=== PATIENT | female | born 1965 | race Caucasian/White ===

== ENCOUNTER 2017-05-15 01:55 | Inpatient (IN) | payer SELFPAY ==
[~2017-05-15] VITALS: Ht 168.9 cm; Wt 60.0 kg
[2017-05-15] MEDS ORDERED: OMEP10 PO (02:13)
[2017-05-15] MEDS ORDERED: GABA-531 PO (02:13)
[2017-05-15] MEDS ORDERED: PRAZ2 PO (02:13)
[2017-05-15] MEDS ORDERED: TRAZ-144 PO (02:13)
[2017-05-15] MEDS ORDERED: MIRT30 PO (02:13)
[2017-05-15] MEDS ORDERED: CLON.5 PO (02:13)
[2017-05-15] MEDS ORDERED: ARIP2 PO (02:13)
[2017-05-15] MEDS ORDERED: OLAN2.5T3 PO (02:13)
[2017-05-15 04:37] LABS: AMPHET/METH SCREEN,URINE POSITIVE (NEGATIVE); BARBITURATE SCREEN, URINE NEGATIVE (NEGATIVE); BENZODIAZEPINES SCREEN,URINE POSITIVE (NEGATIVE); CANNABINOID SCREEN,URINE POSITIVE (NEGATIVE); COCAINE SCREEN,URINE POSITIVE (NEGATIVE); METHADONE SCREEN, URINE NEGATIVE (NEGATIVE); OPIATE SCREEN,URINE NEGATIVE (NEGATIVE)
[2017-05-15 04:40] LABS: PHENCYCLIDINE SCREEN,URINE NEGATIVE (NEGATIVE)
[2017-05-15 04:58] LABS: BASOPHILS # (AUTO) 0.01 K/uL (0.00-0.20); BASOPHILS % (AUTO) 0.3 % (0.0-2.0); EOSINOPHILS # (AUTO) 0.07 K/uL (0.00-0.70); EOSINOPHILS % (AUTO) 1.54 % (1.0-6.0); HEMATOCRIT 37.2 % (36-46); HEMOGLOBIN 12.5 g/dL (12.0-16.0); LYMPHOCYTES # (AUTO) 2.5 K/uL (1.0-4.8); LYMPHOCYTES % (AUTO) 59.5 % (22.0-44.0); MEAN CORPUSCULAR HEMOGLOBIN 31.7 pg (26.0-34.0); MEAN CORPUSCULAR HGB CONC 33.7 G/dL (31.0-37.0); MEAN CORPUSCULAR VOLUME 94 fL (80-100); MONOCYTES # (AUTO) 0.2 K/uL (0.1-1.0); MONOCYTES % (AUTO) 4.9 % (2.0-9.0); NEUTROPHILS # (AUTO) 1.4 K/uL (1.8-7.7); NEUTROPHILS % (AUTO) 33.8 % (40.0-70.0); PLATELET COUNT (AUTO) 206 K/uL (150-450); RED BLOOD CELL COUNT(AUTO) 3.96 MIL/uL (4.00-5.20)
[2017-05-15 05:03] LABS: ANION GAP 8 mmol/L (8-16); CALCIUM, TOTAL 8.3 mg/dL (8.8-10.5); CARBON DIOXIDE 30 mmol/L (22-29); CHLORIDE 108 mmol/L (98-107); CREATININE 0.52 mg/dL (0.60-1.30); GLOMERULAR FILTR. RATE CALC > 60 mL/min (>60); GLUCOSE,RANDOM 80 mg/dL (70-110); POTASSIUM 3.4 mmol/L (3.5-5.1); SODIUM SERUM 146 mmol/L (136-145); UREA NITROGEN, BLOOD 17 mg/dL (7-18)
[2017-05-15 05:10] LABS: ALANINE AMINOTRANSFERASE 65 U/L (12-78); ALBUMIN 3.4 g/dL (3.4-5.0); ALKALINE PHOSPHATASE 122 U/L (46-116); ASPARTATE AMINOTRANSFERASE 33 U/L (15-37); BILIRUBIN,TOTAL 0.2 mg/dL (0.1-1.0); TOTAL PROTEIN, SERUM 7.5 g/dL (6.4-8.2)
[2017-05-15 09:59] VITALS: BP 115/72
[2017-05-15] MEDS ORDERED: PNEUMOCOCCAL VACCINE POLYVALENT 0.5 ML VIAL [PPSV23] IM ONE (10:30)
[2017-05-15] MEDS ORDERED: INFLUENZA VIRUS VACCINE QVS 2017-18 (3YR+)/PF 60 MCG/0.5 ML SYRINGE IM ONE (10:30)
[2017-05-15] MEDS: OLANZapine 5 MG TABLET PO SCH (11:32)
[2017-05-15 17:30] VITALS: BP 115/67
[2017-05-15] MEDS ORDERED: POTASSIUM CHLORIDE 20 MEQ ER TABLET PO ONE (17:45)
[2017-05-15 18:30] VITALS: BP 111/65
[2017-05-15 19:30] VITALS: BP 117/69
[2017-05-15 20:20] VITALS: BP 110/64
[2017-05-15 20:34] VITALS: BP 111/62
[2017-05-15] MEDS: TraZODone HCL 50 MG TABLET PO SCH (20:52)
[2017-05-15] MEDS: MIRTAZAPINE 30 MG TABLET PO SCH (20:52)
[2017-05-15] MEDS ORDERED: IBUPROFEN 400 MG TABLET PO PRN (21:00)
[2017-05-15] MEDS ORDERED: ACETAMINOPHEN 325 MG TABLET PO PRN (21:00)
[2017-05-16] VITALS (7 sets, daily range): BP systolic 102–120; BP diastolic 66–81
[2017-05-16 07:58] LABS: CHOL/HDL RATIO 1.6 (3.9-5.7); POTASSIUM 4.2 mmol/L (3.5-5.1); THYROID STIMULATING HORMONE 0.34 uIU/mL (0.36-3.74)
[2017-05-16 07:59] LABS: HEMOGLOBIN A1C 5.4 % (4.5-6.2)
[2017-05-16] MEDS: OLANZapine 5 MG TABLET PO SCH (08:28)
[2017-05-16] MEDS: NICOTINE 14 MG/24 HOUR PATCH TD SCH (09:00)
[2017-05-16] MEDS ORDERED: NICOTINE 7 MG/24 HOUR PATCH TD SCH (09:00)
[2017-05-16] MEDS: MIRTAZAPINE 30 MG TABLET PO SCH (20:25)
[2017-05-16] MEDS: TraZODone HCL 50 MG TABLET PO SCH (20:25)
[2017-05-17 07:09] VITALS: BP 115/70
[2017-05-17 08:27] VITALS: BP 104/67
[2017-05-17] MEDS: NICOTINE 14 MG/24 HOUR PATCH TD SCH (09:00)
[2017-05-17] MEDS: OLANZapine 5 MG TABLET PO SCH (09:00)
[2017-05-17 16:00] VITALS: BP 101/69
[2017-05-17] MEDS: TraZODone HCL 50 MG TABLET PO SCH (19:23)
[2017-05-17] MEDS: MIRTAZAPINE 30 MG TABLET PO SCH (19:32)
[2017-05-17] MEDS: ZOLPIDEM TARTRATE 10 MG TABLET PO PRN (21:08)
[2017-05-18 04:15] VITALS: BP 106/61
[2017-05-18] MEDS: HALOPERIDOL 5 MG TABLET PO PRN (04:16)
[2017-05-18] MEDS ORDERED: LOPERAMIDE HCL 2 MG CAPSULE PO PRN (07:00)
[2017-05-18] MEDS: OLANZapine 5 MG TABLET PO SCH (08:12)
[2017-05-18 08:30] VITALS: BP 98/59
[2017-05-18] MEDS: NICOTINE 14 MG/24 HOUR PATCH TD SCH (09:00)
[2017-05-18 09:21] LABS: ANION GAP 6 mmol/L (8-16); CALCIUM, TOTAL 8.7 mg/dL (8.8-10.5); CARBON DIOXIDE 30 mmol/L (22-29); CHLORIDE 101 mmol/L (98-107); CREATININE 0.56 mg/dL (0.60-1.30); GLOMERULAR FILTR. RATE CALC > 60 mL/min (>60); GLUCOSE,RANDOM 116 mg/dL (70-110); SODIUM SERUM 137 mmol/L (136-145); UREA NITROGEN, BLOOD 15 mg/dL (7-18)
[2017-05-18 16:00] VITALS: BP 106/65
[2017-05-18] MEDS: ZOLPIDEM TARTRATE 10 MG TABLET PO PRN (20:11)
[2017-05-18] MEDS: MIRTAZAPINE 30 MG TABLET PO SCH (20:11)
[2017-05-18] MEDS: TraZODone HCL 50 MG TABLET PO SCH (20:11)
[2017-05-19 01:34] VITALS: BP 105/65
[2017-05-19] MEDS: OLANZapine 5 MG TABLET PO SCH (08:15)
[2017-05-19 08:48] VITALS: BP 99/60
[2017-05-19] MEDS: NICOTINE 14 MG/24 HOUR PATCH TD SCH (09:00)
[2017-05-19 16:41] VITALS: BP 118/73
[2017-05-19] MEDS: TraZODone HCL 50 MG TABLET PO SCH (20:05)
[2017-05-19] MEDS: MIRTAZAPINE 30 MG TABLET PO SCH (20:05)
[2017-05-19] MEDS: ZOLPIDEM TARTRATE 10 MG TABLET PO PRN (21:34)
[2017-05-20 05:42] VITALS: BP 100/70
[2017-05-20 08:00] VITALS: BP 110/60
[2017-05-20] MEDS: OLANZapine 5 MG TABLET PO SCH (08:06)
[2017-05-20] MEDS: NICOTINE 14 MG/24 HOUR PATCH TD SCH (09:00)
[2017-05-20 16:00] VITALS: BP 100/64
[2017-05-20] MEDS: TraZODone HCL 50 MG TABLET PO SCH (20:12)
[2017-05-20] MEDS: MIRTAZAPINE 30 MG TABLET PO SCH (20:12)
[2017-05-20] MEDS: ZOLPIDEM TARTRATE 10 MG TABLET PO PRN (21:16)
[2017-05-21 00:25] VITALS: BP 110/68
[2017-05-21] MEDS: HALOPERIDOL 5 MG TABLET PO PRN (04:16)
[2017-05-21 08:44] VITALS: BP 100/68
[2017-05-21] MEDS: NICOTINE 14 MG/24 HOUR PATCH TD SCH (09:00)
[2017-05-21] MEDS: OLANZapine 5 MG TABLET PO SCH (09:26)
[2017-05-21 16:23] VITALS: BP 104/71
[2017-05-21] MEDS: MIRTAZAPINE 30 MG TABLET PO SCH (20:19)
[2017-05-21] MEDS: TraZODone HCL 50 MG TABLET PO SCH (20:19)
[2017-05-21] MEDS: ZOLPIDEM TARTRATE 10 MG TABLET PO PRN (21:11)
[2017-05-22 00:36] VITALS: BP 102/65
[2017-05-22] MEDS: OLANZapine 5 MG TABLET PO SCH (08:27)
[2017-05-22] MEDS: NICOTINE 14 MG/24 HOUR PATCH TD SCH (08:27)
[2017-05-22] MEDS: GABAPENTIN 300 MG CAPSULE PO SCH ×2 (13:15→16:03)
[2017-05-22 13:25] VITALS: BP 98/62
[2017-05-22 16:11] VITALS: BP 105/67
[2017-05-22] MEDS: HALOPERIDOL 5 MG TABLET PO PRN (17:36)
[2017-05-22] MEDS: MIRTAZAPINE 30 MG TABLET PO SCH (20:16)
[2017-05-22] MEDS: PRAZOSIN HCL 1 MG CAPSULE PO SCH (20:17)
[2017-05-22] MEDS: TraZODone HCL 50 MG TABLET PO SCH (20:17)
[2017-05-22] MEDS: ZOLPIDEM TARTRATE 10 MG TABLET PO PRN (20:44)
[2017-05-23] MEDS: HALOPERIDOL 5 MG TABLET PO PRN (04:17)
[2017-05-23 04:30] VITALS: BP 100/68
[2017-05-23 08:00] VITALS: BP 100/62
[2017-05-23] MEDS: GABAPENTIN 300 MG CAPSULE PO SCH ×3 (08:28→16:14)
[2017-05-23] MEDS: NICOTINE 14 MG/24 HOUR PATCH TD SCH (08:29)
[2017-05-23] MEDS ORDERED: OLANZapine 10 MG TABLET PO SCH (09:00)
[2017-05-23 16:51] VITALS: BP 102/67
[2017-05-23] MEDS: MIRTAZAPINE 30 MG TABLET PO SCH (20:05)
[2017-05-23] MEDS: TraZODone HCL 50 MG TABLET PO SCH (20:05)
[2017-05-23 20:36] VITALS: BP 108/68
[2017-05-23] MEDS: PRAZOSIN HCL 1 MG CAPSULE PO SCH (20:36)
[2017-05-24] MEDS ORDERED: GABA-531 PO (03:00)
[2017-05-24] MEDS ORDERED: PRAZ1 PO (03:00)
[2017-05-24] MEDS ORDERED: TRAZ-144 PO (03:00)
[2017-05-24] MEDS ORDERED: OLAN10TA3 PO (03:00)
[2017-05-24] MEDS ORDERED: MIRT30 PO (03:00)
== END 2017-05-24 07:15 | disposition home or self-care (01) | DRG 885 ==
LOC: EMS 01:57 → AHU 09:10 → B2S 16:45
PROVIDERS: ADMIT Psychiatry & Neurology Child & Adolescent Psychiatry; ATTEND Psychiatry & Neurology Child & Adolescent Psychiatry
DX: F29 Unspecified psychosis not due to a substance or known physiological condition (principal); E87.1 Hypo-osmolality and hyponatremia; R45.851 Suicidal ideations; E87.6 Hypokalemia; F17.210 Nicotine dependence, cigarettes, uncomplicated; D72.819 Decreased white blood cell count, unspecified; F15.90 Other stimulant use, unspecified, uncomplicated; F12.90 Cannabis use, unspecified, uncomplicated; F14.90 Cocaine use, unspecified, uncomplicated; Z59.0 Homelessness; Z88.2 Allergy status to sulfonamides; Z79.899 Other long term (current) drug therapy; Z88.8 Allergy status to other drugs, medicaments and biological substances; Z88.1 Allergy status to other antibiotic agents
CPT/HCPCS: 83036; 84132; 84443; 99285; G0480

== ENCOUNTER 2018-02-02 08:52 | Inpatient (IN) | payer MEDICARE, MEDICAID ==
[2018-02-02] VITALS (7 sets, daily range): BP systolic 102–124; BP diastolic 60–79
[~2018-02-02] VITALS: Ht 170.2 cm; Wt 61.7 kg
[~2018-02-02 08:52] MED LIST: GABA-531 PO; MIRT30 PO; OLAN10TA3 PO; PRAZ1 PO; TRAZ-219 PO
[2018-02-02 10:03] LABS: BASOPHILS % (AUTO) 0.4 % (0.0-2.0); EOSINOPHILS % (AUTO) 0.2 % (1.0-6.0); HEMATOCRIT 37.8 % (36-46); HEMOGLOBIN 12.9 g/dL (12.0-16.0); LYMPHOCYTES # (AUTO) 1.5 K/uL (1.0-4.8); LYMPHOCYTES % (AUTO) 25.5 % (22.0-44.0); MEAN CORPUSCULAR HEMOGLOBIN 32.6 pg (26.0-34.0); MEAN CORPUSCULAR HGB CONC 34.1 G/dL (31.0-37.0); MEAN CORPUSCULAR VOLUME 96 fL (80-100); MONOCYTES # (AUTO) 0.4 K/uL (0.1-1.0); MONOCYTES % (AUTO) 6.3 % (2.0-9.0); NEUTROPHILS # (AUTO) 4.1 K/uL (1.8-7.7); NEUTROPHILS % (AUTO) 67.6 % (40.0-70.0); PLATELET COUNT (AUTO) 223 K/uL (150-450); RED BLOOD CELL COUNT(AUTO) 3.96 MIL/uL (4.00-5.20); RED CELL DISTRIBUTION WIDTH 12.8 % (11.5-14.5)
[2018-02-02 10:09] LABS: ANION GAP 9 mmol/L (8-16); CALCIUM, TOTAL 8.8 mg/dL (8.8-10.5); CARBON DIOXIDE 27 mmol/L (22-29); CHLORIDE 103 mmol/L (98-107); CREATININE 0.63 mg/dL (0.60-1.30); GLOMERULAR FILTR. RATE CALC > 60 mL/min (>60); GLUCOSE,RANDOM 91 mg/dL (70-110); POTASSIUM 3.9 mmol/L (3.5-5.1); SODIUM SERUM 139 mmol/L (136-145); UREA NITROGEN, BLOOD 16 mg/dL (7-18)
[2018-02-02 10:16] LABS: ALANINE AMINOTRANSFERASE 67 U/L (12-78); ALBUMIN 3.6 g/dL (3.4-5.0); ALKALINE PHOSPHATASE 74 U/L (46-116); ASPARTATE AMINOTRANSFERASE 39 U/L (15-37); BILIRUBIN,TOTAL 0.5 mg/dL (0.1-1.0); TOTAL PROTEIN, SERUM 7.8 g/dL (6.4-8.2)
[2018-02-02] MEDS ORDERED: HALOPERIDOL 5 MG TABLET PO PRN (12:00)
[2018-02-02] MEDS ORDERED: ZOLPIDEM TARTRATE 10 MG TABLET PO PRN (12:00)
[2018-02-02] MEDS ORDERED: LORazepam 2 MG TABLET PO PRN (12:00)
[2018-02-02 12:43] LABS: AMPHET/METH SCREEN,URINE NEGATIVE (NEGATIVE); BARBITURATE SCREEN, URINE NEGATIVE (NEGATIVE); BENZODIAZEPINES SCREEN,URINE NEGATIVE (NEGATIVE); CANNABINOID SCREEN,URINE POSITIVE (NEGATIVE); COCAINE SCREEN,URINE NEGATIVE (NEGATIVE); METHADONE SCREEN, URINE NEGATIVE (NEGATIVE); OPIATE SCREEN,URINE NEGATIVE (NEGATIVE)
[2018-02-02 12:47] LABS: PHENCYCLIDINE SCREEN,URINE NEGATIVE (NEGATIVE)
[2018-02-02 13:25] LABS: APPEARANCE,URINE CLOUDY (CLEAR); BILIRUBIN,URINE NEGATIVE (NEGATIVE); GLUCOSE, URINE (UA) NEGATIVE (NEGATIVE); KETONES,URINE NEGATIVE (NEGATIVE); LEUKOCYTE ESTERASE ,URINE SMALL (NEGATIVE); NITRATE,URINE POSITIVE (NEGATIVE); PROTEIN,URINE NEGATIVE (NEGATIVE); UROBILINOGEN,URINE 0.2 mg/dL (<=1.0)
[2018-02-02 13:28] LABS: OCCULT BLOOD,URINE SMALL (NEGATIVE)
[2018-02-02 13:29] LABS: BACTERIA,URINE Many /HPF (None Seen); SQUAMOUS EPITHELIAL CELL,UR Moderate /LPF (None Seen)
[2018-02-02] MEDS ORDERED: ALBUTEROL SULFATE HFA 90 MCG/PUFF 8 GM INHALER IH PRN (17:00)
[2018-02-02] MEDS ORDERED: MAG HYDROX/AL HYDROX/SIMETH ES 30 ML SUSPENSION UDCUP PO PRN (17:00)
[2018-02-02] MEDS ORDERED: IBUPROFEN 400 MG TABLET PO PRN (17:00)
[2018-02-02] MEDS ORDERED: NICOTINE 14 MG/24 HOUR PATCH TD PRN (17:00)
[2018-02-02] MEDS ORDERED: PETROLATUM,WHITE 71 GM JELLY TP PRN (17:00)
[2018-02-02] MEDS ORDERED: ACETAMINOPHEN 325 MG TABLET PO PRN (17:00)
[2018-02-02] MEDS ORDERED: LOPERAMIDE HCL 2 MG CAPSULE PO PRN (17:00)
[2018-02-02] MEDS ORDERED: GuaiFENesin/D-METHORPHAN [SUGAR-FREE] 200-20MG/10 ML SYRUP UDCUP PO PRN (17:00)
[2018-02-02] MEDS ORDERED: DOCUSATE SODIUM 100 MG CAPSULE PO PRN (17:00)
[2018-02-02] MEDS ORDERED: CloNIDine HCL 0.1 MG TABLET PO PRN (17:00)
[2018-02-02] MEDS ORDERED: MAGNESIUM HYDROXIDE SUSPENSION 30 ML UDCUP PO PRN (17:00)
[2018-02-02] MEDS ORDERED: ONDANSETRON HCL 4 MG TABLET PO PRN (17:00)
[2018-02-02] MEDS: HydrOXYzine PAMOATE 50 MG CAPSULE PO PRN (17:09)
[2018-02-03] VITALS (7 sets, daily range): BP systolic 101–133; BP diastolic 64–82
[2018-02-03 07:09] LABS: BASOPHILS % (AUTO) 0.5 % (0.0-2.0); EOSINOPHILS % (AUTO) 1.5 % (1.0-6.0); HEMATOCRIT 37.3 % (36-46); HEMOGLOBIN 12.7 g/dL (12.0-16.0); LYMPHOCYTES # (AUTO) 1.8 K/uL (1.0-4.8); LYMPHOCYTES % (AUTO) 36.9 % (22.0-44.0); MEAN CORPUSCULAR HEMOGLOBIN 32.6 pg (26.0-34.0); MEAN CORPUSCULAR HGB CONC 34.1 G/dL (31.0-37.0); MEAN CORPUSCULAR VOLUME 96 fL (80-100); MONOCYTES # (AUTO) 0.3 K/uL (0.1-1.0); MONOCYTES % (AUTO) 6.3 % (2.0-9.0); NEUTROPHILS # (AUTO) 2.7 K/uL (1.8-7.7); NEUTROPHILS % (AUTO) 54.8 % (40.0-70.0); PLATELET COUNT (AUTO) 217 K/uL (150-450); RED CELL DISTRIBUTION WIDTH 12.5 % (11.5-14.5)
[2018-02-03 07:38] LABS: ALANINE AMINOTRANSFERASE 61 U/L (12-78); ALBUMIN 3.4 g/dL (3.4-5.0); ALKALINE PHOSPHATASE 66 U/L (46-116); ANION GAP 4 mmol/L (8-16); ASPARTATE AMINOTRANSFERASE 39 U/L (15-37); BILIRUBIN,TOTAL 0.5 mg/dL (0.1-1.0); CALCIUM, TOTAL 8.8 mg/dL (8.8-10.5); CARBON DIOXIDE 29 mmol/L (22-29); CHLORIDE 104 mmol/L (98-107); CHOL/HDL RATIO 1.6 (3.9-5.7); CHOLESTEROL 169 mg/dL (131-200); CREATININE 0.66 mg/dL (0.60-1.30); GLOMERULAR FILTR. RATE CALC > 60 mL/min (>60); GLUCOSE,RANDOM 94 mg/dL (70-110); HDL CHOLESTEROL 107 mg/dL (40-60); LDL CHOL (CALC.) 54 mg/dL (0-130); POTASSIUM 4.9 mmol/L (3.5-5.1); SODIUM SERUM 137 mmol/L (136-145); THYROID STIMULATING HORMONE 2.73 uIU/mL (0.36-3.74); TOTAL PROTEIN, SERUM 7.1 g/dL (6.4-8.2); TRIGLYCERIDES 42 mg/dL (15-150); UREA NITROGEN, BLOOD 16 mg/dL (7-18)
[2018-02-03 08:09] LABS: HEMOGLOBIN A1C 4.9 % (4.5-6.2)
[2018-02-03] MEDS: CIPROFLOXACIN HCL 500 MG TABLET PO SCH ×2 (08:22→16:17)
[2018-02-03] MEDS ORDERED: MAG HYDROX/AL HYDROX/SIMETH ES 30 ML SUSPENSION UDCUP PO PRN (09:15)
[2018-02-03] MEDS ORDERED: ONDANSETRON HCL 4 MG TABLET PO PRN ×2 (09:15→10:30)
[2018-02-03] MEDS ORDERED: PETROLATUM,WHITE 71 GM JELLY TP PRN ×2 (09:15→10:30)
[2018-02-03] MEDS ORDERED: ALBUTEROL SULFATE HFA 90 MCG/PUFF 8 GM INHALER IH PRN (09:15)
[2018-02-03] MEDS ORDERED: CloNIDine HCL 0.1 MG TABLET PO PRN ×2 (09:15→10:30)
[2018-02-03] MEDS ORDERED: DOCUSATE SODIUM 100 MG CAPSULE PO PRN (09:15)
[2018-02-03] MEDS ORDERED: IBUPROFEN 400 MG TABLET PO PRN ×2 (09:15→10:30)
[2018-02-03] MEDS ORDERED: MAGNESIUM HYDROXIDE SUSPENSION 30 ML UDCUP PO PRN ×2 (09:15→10:30)
[2018-02-03] MEDS ORDERED: ACETAMINOPHEN 325 MG TABLET PO PRN ×2 (09:15→10:30)
[2018-02-03] MEDS ORDERED: NICOTINE 14 MG/24 HOUR PATCH TD PRN (09:15)
[2018-02-03] MEDS ORDERED: LOPERAMIDE HCL 2 MG CAPSULE PO PRN ×2 (09:15→10:30)
[2018-02-03] MEDS ORDERED: GuaiFENesin/D-METHORPHAN [SUGAR-FREE] 200-20MG/10 ML SYRUP UDCUP PO PRN ×2 (09:15→10:30)
[2018-02-03] MEDS: NICOTINE 14 MG/24 HOUR PATCH TD SCH (10:18)
[2018-02-03] MEDS ORDERED: OLANZapine 10 MG TABLET PO SCH (10:30)
[2018-02-03] MEDS: GABAPENTIN 300 MG CAPSULE PO SCH ×2 (12:35→16:17)
[2018-02-03] MEDS: TraZODone HCL 50 MG TABLET PO SCH (20:27)
[2018-02-03] MEDS: MIRTAZAPINE 30 MG TABLET PO SCH (20:27)
[2018-02-03] MEDS: PRAZOSIN HCL 1 MG CAPSULE PO SCH (20:27)
[2018-02-04 00:15] VITALS: BP 100/61
[2018-02-04] MEDS: CIPROFLOXACIN HCL 500 MG TABLET PO SCH ×2 (08:37→16:38)
[2018-02-04] MEDS: ARIPiprazole 5 MG TABLET PO SCH (08:37)
[2018-02-04] MEDS: GABAPENTIN 300 MG CAPSULE PO SCH ×3 (08:37→16:37)
[2018-02-04] MEDS: NICOTINE 14 MG/24 HOUR PATCH TD SCH (08:38)
[2018-02-04] MEDS ORDERED: CIPROFLOXACIN HCL 250 MG TABLET PO SCH (09:00)
[2018-02-04] MEDS ORDERED: OLANZapine 5 MG TABLET PO SCH (09:00)
[2018-02-04 12:45] VITALS: BP 104/69
[2018-02-04 16:12] VITALS: BP 117/69
[2018-02-04 20:10] VITALS: BP 110/70
[2018-02-04] MEDS: TraZODone HCL 50 MG TABLET PO SCH (20:13)
[2018-02-04] MEDS: PRAZOSIN HCL 1 MG CAPSULE PO SCH (20:13)
[2018-02-04] MEDS: OLANZapine 5 MG TABLET PO SCH (20:13)
[2018-02-04] MEDS: MIRTAZAPINE 30 MG TABLET PO SCH (20:13)
[2018-02-05 03:25] VITALS: BP 112/67
[2018-02-05 08:00] VITALS: BP 113/79
[2018-02-05] MEDS: NICOTINE 14 MG/24 HOUR PATCH TD SCH (08:09)
[2018-02-05] MEDS: ARIPiprazole 5 MG TABLET PO SCH (08:09)
[2018-02-05] MEDS: GABAPENTIN 300 MG CAPSULE PO SCH ×3 (08:09→16:46)
[2018-02-05] MEDS: CIPROFLOXACIN HCL 500 MG TABLET PO SCH ×2 (08:09→16:46)
[2018-02-05] MEDS: DOCUSATE SODIUM 100 MG CAPSULE PO PRN (14:29)
[2018-02-05 16:00] VITALS: BP 106/68
[2018-02-05] MEDS: PRAZOSIN HCL 1 MG CAPSULE PO SCH (20:35)
[2018-02-05] MEDS: MIRTAZAPINE 30 MG TABLET PO SCH (20:35)
[2018-02-05] MEDS: TraZODone HCL 50 MG TABLET PO SCH (20:35)
[2018-02-05 20:36] VITALS: BP 118/74
[2018-02-05] MEDS: OLANZapine 5 MG TABLET PO SCH (20:36)
[2018-02-06 05:32] VITALS: BP 101/75
[2018-02-06] MEDS: GABAPENTIN 300 MG CAPSULE PO SCH ×3 (08:06→16:30)
[2018-02-06] MEDS: CIPROFLOXACIN HCL 500 MG TABLET PO SCH ×2 (08:06→16:30)
[2018-02-06] MEDS: MULTIVITAMINS WITH MINERALS, THERAPEUTIC TABLET PO SCH (08:06)
[2018-02-06] MEDS: ARIPiprazole 5 MG TABLET PO SCH (08:06)
[2018-02-06] MEDS: FOLIC ACID 1 MG TABLET PO SCH (08:06)
[2018-02-06] MEDS: THIAMINE HCL 100 MG TABLET PO SCH (08:06)
[2018-02-06] MEDS: NICOTINE 14 MG/24 HOUR PATCH TD SCH (08:07)
[2018-02-06 08:38] VITALS: BP 107/77
[2018-02-06] MEDS: DOCUSATE SODIUM 100 MG CAPSULE PO PRN (13:35)
[2018-02-06 16:00] VITALS: BP 117/72
[2018-02-06 20:28] VITALS: BP 115/75
[2018-02-06] MEDS: TraZODone HCL 50 MG TABLET PO SCH (20:30)
[2018-02-06] MEDS: MIRTAZAPINE 30 MG TABLET PO SCH (20:30)
[2018-02-06] MEDS: OLANZapine 5 MG TABLET PO SCH (20:30)
[2018-02-06] MEDS: PRAZOSIN HCL 1 MG CAPSULE PO SCH (20:30)
[2018-02-06] MEDS: ZOLPIDEM TARTRATE 10 MG TABLET PO PRN (22:47)
[2018-02-07 01:20] VITALS: BP 114/76
[2018-02-07 08:00] VITALS: BP 114/68
[2018-02-07] MEDS: THIAMINE HCL 100 MG TABLET PO SCH (08:26)
[2018-02-07] MEDS: NICOTINE 14 MG/24 HOUR PATCH TD SCH (08:26)
[2018-02-07] MEDS: FOLIC ACID 1 MG TABLET PO SCH (08:26)
[2018-02-07] MEDS: GABAPENTIN 300 MG CAPSULE PO SCH ×3 (08:26→16:37)
[2018-02-07] MEDS: CEFUROXIME AXETIL 250 MG TABLET PO SCH ×2 (08:26→16:37)
[2018-02-07] MEDS: MULTIVITAMINS WITH MINERALS, THERAPEUTIC TABLET PO SCH (08:26)
[2018-02-07] MEDS: ARIPiprazole 5 MG TABLET PO SCH (08:26)
[2018-02-07] MEDS: DOCUSATE SODIUM 100 MG CAPSULE PO PRN (13:25)
[2018-02-07 16:56] VITALS: BP 109/63
[2018-02-07] MEDS: HydrOXYzine PAMOATE 50 MG CAPSULE PO PRN (17:28)
[2018-02-07] MEDS: DOCUSATE SODIUM 100 MG CAPSULE PO SCH (17:29)
[2018-02-07 20:33] VITALS: BP 121/69
[2018-02-07] MEDS: OLANZapine 5 MG TABLET PO SCH (20:34)
[2018-02-07] MEDS: PRAZOSIN HCL 1 MG CAPSULE PO SCH (20:34)
[2018-02-07] MEDS: TraZODone HCL 50 MG TABLET PO SCH (20:34)
[2018-02-07] MEDS: MIRTAZAPINE 30 MG TABLET PO SCH (20:34)
[2018-02-08 06:27] VITALS: BP 117/65
[2018-02-08] MEDS: FOLIC ACID 1 MG TABLET PO SCH (08:31)
[2018-02-08] MEDS: CEFUROXIME AXETIL 250 MG TABLET PO SCH ×2 (08:31→16:33)
[2018-02-08] MEDS: THIAMINE HCL 100 MG TABLET PO SCH (08:31)
[2018-02-08] MEDS: OMEPRAZOLE 20 MG CAPSULE PO SCH (08:31)
[2018-02-08] MEDS: ARIPiprazole 5 MG TABLET PO SCH (08:31)
[2018-02-08] MEDS: DOCUSATE SODIUM 100 MG CAPSULE PO SCH ×2 (08:31→16:33)
[2018-02-08] MEDS: GABAPENTIN 300 MG CAPSULE PO SCH ×3 (08:31→16:33)
[2018-02-08] MEDS: MULTIVITAMINS WITH MINERALS, THERAPEUTIC TABLET PO SCH (08:32)
[2018-02-08] MEDS: NICOTINE 14 MG/24 HOUR PATCH TD SCH (08:32)
[2018-02-08 08:33] VITALS: BP 105/69
[2018-02-08] MEDS: MAG HYDROX/AL HYDROX/SIMETH ES 30 ML SUSPENSION UDCUP PO PRN (13:51)
[2018-02-08 16:44] VITALS: BP 120/67
[2018-02-08] MEDS: BISMUTH SUBSALICYLATE 524 MG/30 ML SUSPENSION UDCUP PO PRN (17:40)
[2018-02-08] MEDS: MIRTAZAPINE 30 MG TABLET PO SCH (20:35)
[2018-02-08] MEDS: PRAZOSIN HCL 1 MG CAPSULE PO SCH (20:35)
[2018-02-08] MEDS: TraZODone HCL 50 MG TABLET PO SCH (20:35)
[2018-02-08 20:36] VITALS: BP 111/72
[2018-02-08] MEDS: OLANZapine 5 MG TABLET PO SCH (20:36)
[2018-02-09 02:58] VITALS: BP 127/74
[2018-02-09] MEDS: ARIPiprazole 5 MG TABLET PO SCH (08:05)
[2018-02-09] MEDS: FOLIC ACID 1 MG TABLET PO SCH (08:05)
[2018-02-09] MEDS: MULTIVITAMINS WITH MINERALS, THERAPEUTIC TABLET PO SCH (08:05)
[2018-02-09] MEDS: DOCUSATE SODIUM 100 MG CAPSULE PO SCH ×2 (08:05→16:35)
[2018-02-09] MEDS: THIAMINE HCL 100 MG TABLET PO SCH (08:05)
[2018-02-09] MEDS: CEFUROXIME AXETIL 250 MG TABLET PO SCH ×2 (08:05→16:35)
[2018-02-09] MEDS: GABAPENTIN 300 MG CAPSULE PO SCH ×3 (08:05→16:35)
[2018-02-09] MEDS: OMEPRAZOLE 20 MG CAPSULE PO SCH (08:06)
[2018-02-09] MEDS: NICOTINE 14 MG/24 HOUR PATCH TD SCH (08:06)
[2018-02-09 08:35] VITALS: BP 106/64
[2018-02-09] MEDS: ALBUTEROL SULFATE HFA 90 MCG/PUFF 8 GM INHALER IH PRN (08:47)
[2018-02-09] MEDS: BISMUTH SUBSALICYLATE 524 MG/30 ML SUSPENSION UDCUP PO PRN (15:58)
[2018-02-09 16:15] VITALS: BP 110/73
[2018-02-09 20:29] VITALS: BP 116/69
[2018-02-09] MEDS: MIRTAZAPINE 30 MG TABLET PO SCH (20:31)
[2018-02-09] MEDS: PRAZOSIN HCL 1 MG CAPSULE PO SCH (20:31)
[2018-02-09] MEDS: OLANZapine 5 MG TABLET PO SCH (20:31)
[2018-02-09] MEDS: TraZODone HCL 50 MG TABLET PO SCH (20:31)
[2018-02-09] MEDS: MAG HYDROX/AL HYDROX/SIMETH ES 30 ML SUSPENSION UDCUP PO PRN (20:44)
[2018-02-10 00:53] VITALS: BP 121/73
[2018-02-10] MEDS: ZOLPIDEM TARTRATE 10 MG TABLET PO PRN (00:58)
[2018-02-10 08:14] VITALS: BP 105/65
[2018-02-10] MEDS: GABAPENTIN 300 MG CAPSULE PO SCH ×3 (09:04→16:31)
[2018-02-10] MEDS: FOLIC ACID 1 MG TABLET PO SCH (09:04)
[2018-02-10] MEDS: THIAMINE HCL 100 MG TABLET PO SCH (09:04)
[2018-02-10] MEDS: ARIPiprazole 5 MG TABLET PO SCH (09:04)
[2018-02-10] MEDS: OMEPRAZOLE 20 MG CAPSULE PO SCH (09:07)
[2018-02-10] MEDS: DOCUSATE SODIUM 100 MG CAPSULE PO SCH ×2 (09:08→16:31)
[2018-02-10] MEDS: MULTIVITAMINS WITH MINERALS, THERAPEUTIC TABLET PO SCH (09:08)
[2018-02-10] MEDS: NICOTINE 14 MG/24 HOUR PATCH TD SCH (09:08)
[2018-02-10] MEDS: CEFUROXIME AXETIL 250 MG TABLET PO SCH ×2 (09:10→16:38)
[2018-02-10] MEDS: ALBUTEROL SULFATE HFA 90 MCG/PUFF 8 GM INHALER IH PRN (14:13)
[2018-02-10 16:17] VITALS: BP 104/65
[2018-02-10 20:29] VITALS: BP 110/72
[2018-02-10] MEDS: OLANZapine 5 MG TABLET PO SCH (20:31)
[2018-02-10] MEDS: MIRTAZAPINE 30 MG TABLET PO SCH (20:31)
[2018-02-10] MEDS: PRAZOSIN HCL 1 MG CAPSULE PO SCH (20:31)
[2018-02-10] MEDS: TraZODone HCL 50 MG TABLET PO SCH (20:31)
[2018-02-11 01:20] VITALS: BP 102/62
[2018-02-11] MEDS: ZOLPIDEM TARTRATE 10 MG TABLET PO PRN (03:23)
[2018-02-11 08:08] VITALS: BP 114/60
[2018-02-11] MEDS: MULTIVITAMINS WITH MINERALS, THERAPEUTIC TABLET PO SCH (08:29)
[2018-02-11] MEDS: GABAPENTIN 300 MG CAPSULE PO SCH ×3 (08:29→16:45)
[2018-02-11] MEDS: FOLIC ACID 1 MG TABLET PO SCH (08:29)
[2018-02-11] MEDS: ARIPiprazole 5 MG TABLET PO SCH (08:29)
[2018-02-11] MEDS: CEFUROXIME AXETIL 250 MG TABLET PO SCH ×2 (08:29→16:45)
[2018-02-11] MEDS: OMEPRAZOLE 20 MG CAPSULE PO SCH (08:29)
[2018-02-11] MEDS: NICOTINE 14 MG/24 HOUR PATCH TD SCH (08:29)
[2018-02-11] MEDS: DOCUSATE SODIUM 100 MG CAPSULE PO SCH ×2 (08:29→16:45)
[2018-02-11] MEDS: THIAMINE HCL 100 MG TABLET PO SCH (08:29)
[2018-02-11] MEDS: BISMUTH SUBSALICYLATE 524 MG/30 ML SUSPENSION UDCUP PO PRN (14:55)
[2018-02-11 16:06] VITALS: BP 102/61
[2018-02-11 20:32] VITALS: BP 110/69
[2018-02-11] MEDS: MIRTAZAPINE 30 MG TABLET PO SCH (20:33)
[2018-02-11] MEDS: PRAZOSIN HCL 1 MG CAPSULE PO SCH (20:33)
[2018-02-11] MEDS: TraZODone HCL 50 MG TABLET PO SCH (20:33)
[2018-02-11] MEDS: OLANZapine 5 MG TABLET PO SCH (20:34)
[2018-02-12 00:01] VITALS: BP 110/67
[2018-02-12] MEDS: ZOLPIDEM TARTRATE 10 MG TABLET PO PRN (00:02)
[2018-02-12 08:02] VITALS: BP 100/63
[2018-02-12] MEDS: MULTIVITAMINS WITH MINERALS, THERAPEUTIC TABLET PO SCH (08:17)
[2018-02-12] MEDS: FOLIC ACID 1 MG TABLET PO SCH (08:17)
[2018-02-12] MEDS: NICOTINE 14 MG/24 HOUR PATCH TD SCH (08:17)
[2018-02-12] MEDS: ARIPiprazole 5 MG TABLET PO SCH (08:17)
[2018-02-12] MEDS: GABAPENTIN 300 MG CAPSULE PO SCH ×3 (08:17→16:06)
[2018-02-12] MEDS: OMEPRAZOLE 20 MG CAPSULE PO SCH (08:17)
[2018-02-12] MEDS: THIAMINE HCL 100 MG TABLET PO SCH (08:17)
[2018-02-12] MEDS: CEFUROXIME AXETIL 250 MG TABLET PO SCH ×2 (08:17→16:06)
[2018-02-12] MEDS: DOCUSATE SODIUM 100 MG CAPSULE PO SCH (08:22)
[2018-02-12] MEDS: BISMUTH SUBSALICYLATE 524 MG/30 ML SUSPENSION UDCUP PO PRN (12:37)
[2018-02-12] MEDS: ALBUTEROL SULFATE HFA 90 MCG/PUFF 8 GM INHALER IH PRN (12:37)
[2018-02-12] MEDS ORDERED: OMEP20 PO (13:38)
[2018-02-12] MEDS ORDERED: CEFU250T87 PO (13:38)
[2018-02-12] MEDS ORDERED: DOCU100C33 PO (13:38)
[2018-02-12] MEDS ORDERED: ARIP5TAB8 PO (13:38)
== END 2018-02-12 16:30 | disposition home or self-care (01) | DRG 885 ==
LOC: EMS 08:53 → B2X 14:42
PROVIDERS: ADMIT Psychiatry & Neurology Child & Adolescent Psychiatry; ATTEND Psychiatry & Neurology Child & Adolescent Psychiatry
DX: F25.9 Schizoaffective disorder, unspecified (principal); K50.90 Crohn's disease, unspecified, without complications; N39.0 Urinary tract infection, site not specified; R45.851 Suicidal ideations; F10.10 Alcohol abuse, uncomplicated; R74.0 Nonspecific elevation of levels of transaminase and lactic acid dehydrogenase [LDH]; K21.9 Gastro-esophageal reflux disease without esophagitis; F17.200 Nicotine dependence, unspecified, uncomplicated; F41.9 Anxiety disorder, unspecified; Z59.0 Homelessness
CPT/HCPCS: 83036; 84443; 87086; 99285; G0480; J3535

== ENCOUNTER 2018-02-21 01:26 | Inpatient (IN) | payer MEDICARE, OTHER ==
[~2018-02-21] VITALS: Ht 170.2 cm; Wt 62.5 kg
[~2018-02-21 01:26] MED LIST changes: +ARIP5TAB8 PO; +CEFU250T87 PO; +DOCU100C33 PO; +OMEP20 PO
[2018-02-21] MEDS ORDERED: METOCLOPRAMIDE HCL 5 MG/ML 2 ML VIAL IVP ONE (02:45)
[2018-02-21] MEDS ORDERED: SODIUM CHLORIDE 0.9% 1,000 ML IV ONE ×2 (02:45→03:15)
[2018-02-21] MEDS ORDERED: MORPHINE SULFATE 4 MG/ML SYRINGE IVP ONE (02:45)
[2018-02-21] MEDS ORDERED: ONDANSETRON HCL 4 MG/2 ML VIAL IVP ONE (03:15)
[2018-02-21 03:26] LABS: HEMATOCRIT 36.3 % (36-46); HEMOGLOBIN 12.5 g/dL (12.0-16.0); MEAN CORPUSCULAR HEMOGLOBIN 31.7 pg (26.0-34.0); MEAN CORPUSCULAR HGB CONC 34.5 G/dL (31.0-37.0); MEAN CORPUSCULAR VOLUME 92 fL (80-100); PLATELET COUNT (AUTO) 231 K/uL (150-450); RED BLOOD CELL COUNT(AUTO) 3.96 MIL/uL (4.00-5.20)
[2018-02-21 03:32] LABS: ANION GAP 9 mmol/L (8-16); CALCIUM, TOTAL 8.3 mg/dL (8.8-10.5); CARBON DIOXIDE 26 mmol/L (22-29); CHLORIDE 96 mmol/L (98-107); CREATININE 0.59 mg/dL (0.60-1.30); GLOMERULAR FILTR. RATE CALC > 60 mL/min (>60); GLUCOSE,RANDOM 107 mg/dL (70-110); INR 1.1 (0.9-1.1); POTASSIUM 3.5 mmol/L (3.5-5.1); PROTHROMBIN TIME 11.1 SEC (9.4-11.6); SODIUM SERUM 131 mmol/L (136-145); UREA NITROGEN, BLOOD 11 mg/dL (7-18)
[2018-02-21 03:38] LABS: ALANINE AMINOTRANSFERASE 82 U/L (12-78); ALBUMIN 2.7 g/dL (3.4-5.0); ALKALINE PHOSPHATASE 118 U/L (46-116); ASPARTATE AMINOTRANSFERASE 29 U/L (15-37); BILIRUBIN,TOTAL 0.6 mg/dL (0.1-1.0); LIPASE 54 U/L (73-393); TOTAL PROTEIN, SERUM 6.9 g/dL (6.4-8.2)
[2018-02-21 03:51] LABS: BAND NEUTROPHILS % (MANUAL) 29 % (0-5); LYMPHOCYTES % (MANUAL) 4 % (22-44); MONOCYTES % (MANUAL) 5 % (2-9); SEGMENTED NEUTROPHILS % 62 % (40-70)
[2018-02-21 03:55] LABS: HCG,QUANTITATIVE < 1 mIU/mL (0-6)
[2018-02-21] MEDS ORDERED: IOVERSOL 350 MG/ML 100 ML VIAL ONE (04:02)
[2018-02-21] MEDS ORDERED: SODIUM CHLORIDE 0.9% 100 ML ONE (04:02)
[2018-02-21] MEDS ORDERED: PIPERACILLIN/TAZO 3.375 GM/D5W 50 ML IV SCH (05:00)
[2018-02-21] MEDS ORDERED: SODIUM CHLORIDE 0.9% 500 ML IV ONE (05:22)
[2018-02-21 05:39] VITALS: BP 115/67
[2018-02-21 08:00] VITALS: BP 99/66
[2018-02-21] MEDS ORDERED: BISACODYL 10 MG RECTAL RECTAL SUPPOSITORY PR PRN (10:30)
[2018-02-21] MEDS ORDERED: ZOLPIDEM TARTRATE 5 MG TABLET PO PRN (10:30)
[2018-02-21] MEDS ORDERED: ONDANSETRON HCL 4 MG/2 ML VIAL IVP PRN (10:30)
[2018-02-21] MEDS ORDERED: HYDROCODONE/ACETAMINOPHEN 5-325 MG TABLET PO PRN (10:30)
[2018-02-21] MEDS ORDERED: MAGNESIUM HYDROXIDE SUSPENSION 30 ML UDCUP PO PRN (10:30)
[2018-02-21] MEDS ORDERED: ACETAMINOPHEN 325 MG TABLET PO PRN (10:30)
[2018-02-21] MEDS ORDERED: MORPHINE SULFATE 2 MG/ML SYRINGE IVP PRN (10:30)
[2018-02-21] MEDS ORDERED: CIPROFLOXACIN 400 MG/D5% WATER 200 ML IV ONE (11:00)
[2018-02-21] MEDS ORDERED: MAGNESIUM SULFATE 2 GM, MVI, ADULT NO.1 WITH VIT K 10 ML, THIAMINE HCL 100 MG, FOLIC AC... IV ONE ×10 (11:00→11:30)
[2018-02-21] MEDS: MetroNIDAZOLE 500 MG/NACL 100 ML IV SCH ×2 (11:49→23:02)
[2018-02-21 11:51] VITALS: BP 100/67
[2018-02-21 15:50] VITALS: BP 100/61
[2018-02-21] MEDS: GABAPENTIN 300 MG CAPSULE PO SCH ×2 (16:50→20:46)
[2018-02-21] MEDS: HEPARIN SODIUM,PORCINE 5,000 UNITS/ML VIAL SQ SCH ×2 (16:50→23:01)
[2018-02-21 20:01] VITALS: BP 94/62
[2018-02-21] MEDS: TraZODone HCL 50 MG TABLET PO SCH (20:46)
[2018-02-21] MEDS: DOCUSATE SODIUM 100 MG CAPSULE PO SCH (20:47)
[2018-02-21] MEDS: MIRTAZAPINE 15 MG TABLET PO SCH (20:47)
[2018-02-21] MEDS ORDERED: OLANZapine 5 MG TABLET PO SCH (21:00)
[2018-02-21] MEDS ORDERED: MIRTAZAPINE 30 MG TABLET PO SCH (21:00)
[2018-02-21] MEDS: PRAZOSIN HCL 1 MG CAPSULE PO SCH (21:00)
[2018-02-21 21:19] LABS: AMPHET/METH SCREEN,URINE POSITIVE (NEGATIVE); BARBITURATE SCREEN, URINE NEGATIVE (NEGATIVE); BENZODIAZEPINES SCREEN,URINE NEGATIVE (NEGATIVE); CANNABINOID SCREEN,URINE POSITIVE (NEGATIVE); COCAINE SCREEN,URINE NEGATIVE (NEGATIVE); METHADONE SCREEN, URINE NEGATIVE (NEGATIVE); OPIATE SCREEN,URINE POSITIVE (NEGATIVE); PHENCYCLIDINE SCREEN,URINE NEGATIVE (NEGATIVE)
[2018-02-21 23:27] VITALS: BP 106/64
[2018-02-22 04:18] VITALS: BP 111/68
[2018-02-22 06:20] LABS: BASOPHILS % (AUTO) 0.5 % (0.0-2.0); EOSINOPHILS % (AUTO) 0.9 % (1.0-6.0); HEMATOCRIT 33.4 % (36-46); HEMOGLOBIN 11.6 g/dL (12.0-16.0); LYMPHOCYTES # (AUTO) 1.1 K/uL (1.0-4.8); LYMPHOCYTES % (AUTO) 6.9 % (22.0-44.0); MEAN CORPUSCULAR HEMOGLOBIN 31.9 pg (26.0-34.0); MEAN CORPUSCULAR HGB CONC 34.6 G/dL (31.0-37.0); MEAN CORPUSCULAR VOLUME 92 fL (80-100); MONOCYTES # (AUTO) 0.7 K/uL (0.1-1.0); MONOCYTES % (AUTO) 4.3 % (2.0-9.0); NEUTROPHILS # (AUTO) 14.1 K/uL (1.8-7.7); PLATELET COUNT (AUTO) 209 K/uL (150-450); RED BLOOD CELL COUNT(AUTO) 3.63 MIL/uL (4.00-5.20); RED CELL DISTRIBUTION WIDTH 12.2 % (11.5-14.5)
[2018-02-22 06:38] LABS: ANION GAP 8 mmol/L (8-16); CARBON DIOXIDE 26 mmol/L (22-29); CHLORIDE 101 mmol/L (98-107); CREATININE 0.57 mg/dL (0.60-1.30); GLOMERULAR FILTR. RATE CALC > 60 mL/min (>60); GLUCOSE,RANDOM 77 mg/dL (70-110); POTASSIUM 3.1 mmol/L (3.5-5.1); SODIUM SERUM 135 mmol/L (136-145); UREA NITROGEN, BLOOD 8 mg/dL (7-18)
[2018-02-22 06:50] LABS: NEUTROPHILS % (AUTO) 87.4 % (40.0-70.0)
[2018-02-22 08:00] VITALS: BP 105/68
[2018-02-22] MEDS: DOCUSATE SODIUM 100 MG CAPSULE PO SCH ×2 (08:21→20:16)
[2018-02-22] MEDS: HEPARIN SODIUM,PORCINE 5,000 UNITS/ML VIAL SQ SCH ×2 (08:22→15:53)
[2018-02-22] MEDS: GABAPENTIN 300 MG CAPSULE PO SCH ×3 (08:22→20:16)
[2018-02-22] MEDS: PANTOPRAZOLE SODIUM 40 MG DR TABLET PO SCH (08:22)
[2018-02-22] MEDS ORDERED: POTASSIUM CHLORIDE 20 MEQ ER TABLET PO PRN (08:30)
[2018-02-22] MEDS ORDERED: POTASSIUM CHL 10 MEQ/WATER 50 ML IV PRN (08:30)
[2018-02-22] MEDS ORDERED: SODIUM CHLORIDE 0.9% 1,000 ML IV ONE (08:30)
[2018-02-22] MEDS ORDERED: ARIPiprazole 10 MG TABLET PO SCH (09:00)
[2018-02-22] MEDS ORDERED: ARIPiprazole 5 MG TABLET PO SCH (09:00)
[2018-02-22 11:06] VITALS: BP 111/68
[2018-02-22] MEDS: CIPROFLOXACIN 400 MG/D5% WATER 200 ML IV SCH ×2 (11:35→22:38)
[2018-02-22] MEDS: MetroNIDAZOLE 500 MG/NACL 100 ML IV SCH (12:23)
[2018-02-22 15:26] VITALS: BP 112/70
[2018-02-22 19:40] VITALS: BP 104/62
[2018-02-22] MEDS: MIRTAZAPINE 15 MG TABLET PO SCH (20:16)
[2018-02-22] MEDS: TraZODone HCL 50 MG TABLET PO SCH (20:16)
[2018-02-22] MEDS: PRAZOSIN HCL 1 MG CAPSULE PO SCH (20:16)
[2018-02-22] MEDS ORDERED: SODIUM CHLORIDE 0.9% 500 ML IV ONE (22:43)
[2018-02-22 23:30] VITALS: BP 107/67
[2018-02-23] MEDS: MetroNIDAZOLE 500 MG/NACL 100 ML IV SCH (00:15)
[2018-02-23] MEDS: HEPARIN SODIUM,PORCINE 5,000 UNITS/ML VIAL SQ SCH ×2 (00:15→07:39)
[2018-02-23 04:00] VITALS: BP 111/63
[2018-02-23 05:44] LABS: BASOPHILS % (AUTO) 0.3 % (0.0-2.0); EOSINOPHILS % (AUTO) 1.9 % (1.0-6.0); HEMATOCRIT 35.5 % (36-46); HEMOGLOBIN 12.6 g/dL (12.0-16.0); LYMPHOCYTES % (AUTO) 9.5 % (22.0-44.0); MEAN CORPUSCULAR HEMOGLOBIN 32.5 pg (26.0-34.0); MEAN CORPUSCULAR HGB CONC 35.5 G/dL (31.0-37.0); MEAN CORPUSCULAR VOLUME 92 fL (80-100); MONOCYTES # (AUTO) 0.5 K/uL (0.1-1.0); NEUTROPHILS # (AUTO) 9.1 K/uL (1.8-7.7); NEUTROPHILS % (AUTO) 83.3 % (40.0-70.0); PLATELET COUNT (AUTO) 224 K/uL (150-450); RED BLOOD CELL COUNT(AUTO) 3.87 MIL/uL (4.00-5.20)
[2018-02-23 05:57] LABS: ANION GAP 3 mmol/L (8-16); CALCIUM, TOTAL 7.9 mg/dL (8.8-10.5); CARBON DIOXIDE 27 mmol/L (22-29); CHLORIDE 103 mmol/L (98-107); CREATININE 0.56 mg/dL (0.60-1.30); GLOMERULAR FILTR. RATE CALC > 60 mL/min (>60); GLUCOSE,RANDOM 105 mg/dL (70-110); POTASSIUM 3.6 mmol/L (3.5-5.1); SODIUM SERUM 133 mmol/L (136-145); UREA NITROGEN, BLOOD 3 mg/dL (7-18)
[2018-02-23] MEDS: GABAPENTIN 300 MG CAPSULE PO SCH (07:39)
[2018-02-23] MEDS: DOCUSATE SODIUM 100 MG CAPSULE PO SCH (07:39)
[2018-02-23] MEDS: PANTOPRAZOLE SODIUM 40 MG DR TABLET PO SCH (07:39)
[2018-02-23 07:44] VITALS: BP 106/72
[2018-02-23] MEDS ORDERED: ARIPiprazole 15 MG TABLET PO SCH (09:00)
[2018-02-23] MEDS ORDERED: CIPROFLOXACIN HCL 500 MG TABLET PO SCH (10:21)
[2018-02-23 11:34] VITALS: BP 111/79
[2018-02-23] MEDS ORDERED: MetroNIDAZOLE 500 MG TABLET PO SCH (16:00)
== END 2018-02-23 13:03 | DRG 871 ==
LOC: EMS 01:27 → 6N 04:00
PROVIDERS: ADMIT Internal Medicine; ATTEND Internal Medicine
DX: A41.9 Sepsis, unspecified organism (principal); E43 Unspecified severe protein-calorie malnutrition; E87.1 Hypo-osmolality and hyponatremia; K50.90 Crohn's disease, unspecified, without complications; R45.851 Suicidal ideations; F33.3 Major depressive disorder, recurrent, severe with psychotic symptoms; A04.9 Bacterial intestinal infection, unspecified; A08.4 Viral intestinal infection, unspecified; F10.10 Alcohol abuse, uncomplicated; F15.90 Other stimulant use, unspecified, uncomplicated; F19.10 Other psychoactive substance abuse, uncomplicated; E87.6 Hypokalemia; F17.200 Nicotine dependence, unspecified, uncomplicated; K21.9 Gastro-esophageal reflux disease without esophagitis; Z59.0 Homelessness; Z91.19 Patient's noncompliance with other medical treatment and regimen; Z91.5 Personal history of self-harm; Z88.2 Allergy status to sulfonamides; Z88.8 Allergy status to other drugs, medicaments and biological substances; Z79.899 Other long term (current) drug therapy; Z71.6 Tobacco abuse counseling; Z68.21 Body mass index [BMI] 21.0-21.9, adult; Z83.3 Family history of diabetes mellitus
CPT/HCPCS: 74177; 87040; 87045; 87081; 87427; 89055; 96365; 96374; 96375; 99285; G0480; J0744; J1644; J2270; J2405; J2543; J2765; J3411; J3475; J3490; J7030; J7040; J7050

== ENCOUNTER 2018-02-23 13:00 | Inpatient (IN) | payer MEDICARE, MEDICAID ==
[~2018-02-23] VITALS: Ht 170.2 cm; Wt 64.0 kg
[2018-02-23] MEDS ORDERED: HALOPERIDOL 5 MG TABLET PO PRN (14:15)
[2018-02-23 14:25] VITALS: BP 109/73
[2018-02-23] MEDS ORDERED: MAGNESIUM HYDROXIDE SUSPENSION 30 ML UDCUP PO PRN (14:45)
[2018-02-23] MEDS ORDERED: ONDANSETRON HCL 4 MG TABLET PO PRN (14:45)
[2018-02-23] MEDS ORDERED: ACETAMINOPHEN 325 MG TABLET PO PRN (14:45)
[2018-02-23] MEDS ORDERED: ALBUTEROL SULFATE HFA 90 MCG/PUFF 8 GM INHALER IH PRN (14:45)
[2018-02-23] MEDS ORDERED: PETROLATUM,WHITE 71 GM JELLY TP PRN (14:45)
[2018-02-23] MEDS ORDERED: IBUPROFEN 400 MG TABLET PO PRN (14:45)
[2018-02-23] MEDS ORDERED: CloNIDine HCL 0.1 MG TABLET PO PRN (14:45)
[2018-02-23] MEDS ORDERED: PNEUMOCOCCAL VACCINE POLYVALENT 0.5 ML VIAL [PPSV23] IM ONE (14:45)
[2018-02-23] MEDS ORDERED: NICOTINE 14 MG/24 HOUR PATCH TD PRN (14:45)
[2018-02-23] MEDS ORDERED: MAG HYDROX/AL HYDROX/SIMETH ES 30 ML SUSPENSION UDCUP PO PRN (14:45)
[2018-02-23] MEDS ORDERED: GuaiFENesin/D-METHORPHAN [SUGAR-FREE] 200-20MG/10 ML SYRUP UDCUP PO PRN (14:45)
[2018-02-23] MEDS: GABAPENTIN 300 MG CAPSULE PO SCH (16:25)
[2018-02-23] MEDS: CIPROFLOXACIN HCL 500 MG TABLET PO SCH (16:25)
[2018-02-23] MEDS: MetroNIDAZOLE 500 MG TABLET PO SCH (16:25)
[2018-02-23] MEDS: MIRTAZAPINE 15 MG TABLET PO SCH (20:08)
[2018-02-23 20:09] VITALS: BP 124/74
[2018-02-23] MEDS: TraZODone HCL 50 MG TABLET PO SCH (20:09)
[2018-02-24] MEDS: ZOLPIDEM TARTRATE 10 MG TABLET PO PRN ×2 (00:47→22:07)
[2018-02-24 03:42] VITALS: BP 104/63
[2018-02-24 08:05] VITALS: BP 105/63
[2018-02-24] MEDS: ARIPiprazole 15 MG TABLET PO SCH (08:41)
[2018-02-24] MEDS: GABAPENTIN 300 MG CAPSULE PO SCH ×2 (08:41→17:25)
[2018-02-24] MEDS: MetroNIDAZOLE 500 MG TABLET PO SCH ×4 (08:41→23:02)
[2018-02-24] MEDS: CIPROFLOXACIN HCL 500 MG TABLET PO SCH ×2 (08:41→17:25)
[2018-02-24] MEDS: PANTOPRAZOLE SODIUM 40 MG DR TABLET PO SCH (08:41)
[2018-02-24 16:00] VITALS: BP 93/53
[2018-02-24] MEDS ORDERED: ZINC OXIDE 16% PASTE 57 GM TUBE TP PRN (19:15)
[2018-02-24] MEDS: TraZODone HCL 50 MG TABLET PO SCH (20:37)
[2018-02-24] MEDS: LACTOBACILLUS ACIDOPHILUS/BULGARICUS GRANULES PACKET PO SCH (20:38)
[2018-02-24] MEDS: MIRTAZAPINE 15 MG TABLET PO SCH (20:38)
[2018-02-25 01:15] VITALS: BP 116/80
[2018-02-25] MEDS: LOPERAMIDE HCL 2 MG CAPSULE PO PRN ×2 (07:08→16:38)
[2018-02-25] MEDS: MetroNIDAZOLE 500 MG TABLET PO SCH ×2 (07:08→16:37)
[2018-02-25 08:15] VITALS: BP 99/69
[2018-02-25] MEDS: GABAPENTIN 300 MG CAPSULE PO SCH ×2 (08:15→16:38)
[2018-02-25] MEDS: ARIPiprazole 15 MG TABLET PO SCH (08:15)
[2018-02-25] MEDS: CIPROFLOXACIN HCL 500 MG TABLET PO SCH ×2 (08:15→16:37)
[2018-02-25] MEDS: PANTOPRAZOLE SODIUM 40 MG DR TABLET PO SCH (08:15)
[2018-02-25] MEDS: LACTOBACILLUS ACIDOPHILUS/BULGARICUS GRANULES PACKET PO SCH ×3 (08:15→16:37)
[2018-02-25 16:15] VITALS: BP 97/52
[2018-02-25] MEDS: TraZODone HCL 50 MG TABLET PO SCH (21:01)
[2018-02-25] MEDS: MIRTAZAPINE 15 MG TABLET PO SCH (21:02)
[2018-02-26] MEDS: MetroNIDAZOLE 500 MG TABLET PO SCH ×2 (01:00→08:52)
[2018-02-26] MEDS: LOPERAMIDE HCL 2 MG CAPSULE PO PRN (04:22)
[2018-02-26 04:29] VITALS: BP 114/59
[2018-02-26 07:19] LABS: ANION GAP 5 mmol/L (8-16); CALCIUM, TOTAL 8.4 mg/dL (8.8-10.5); CARBON DIOXIDE 29 mmol/L (22-29); CHLORIDE 107 mmol/L (98-107); CREATININE 0.74 mg/dL (0.60-1.30); GLOMERULAR FILTR. RATE CALC > 60 mL/min (>60); GLUCOSE,RANDOM 121 mg/dL (70-110); POTASSIUM 4.1 mmol/L (3.5-5.1); SODIUM SERUM 141 mmol/L (136-145); UREA NITROGEN, BLOOD 9 mg/dL (7-18)
[2018-02-26 08:15] VITALS: BP 106/71
[2018-02-26] MEDS: ARIPiprazole 15 MG TABLET PO SCH (08:52)
[2018-02-26] MEDS: PANTOPRAZOLE SODIUM 40 MG DR TABLET PO SCH (08:52)
[2018-02-26] MEDS: LACTOBACILLUS ACIDOPHILUS/BULGARICUS GRANULES PACKET PO SCH ×2 (08:52→12:46)
[2018-02-26] MEDS: GABAPENTIN 300 MG CAPSULE PO SCH (08:52)
[2018-02-26] MEDS: CIPROFLOXACIN HCL 500 MG TABLET PO SCH (08:52)
[2018-02-26] MEDS ORDERED: METR500 PO (09:24)
[2018-02-26] MEDS ORDERED: CIPR-278 PO (09:24)
[2018-02-26] MEDS ORDERED: ACID1GRA PO (09:27)
== END 2018-02-26 14:09 | disposition home or self-care (01) | DRG 885 ==
LOC: 3EX 13:00
PROVIDERS: ADMIT Psychiatry & Neurology Psychiatry; ATTEND Psychiatry & Neurology Psychiatry
DX: F33.3 Major depressive disorder, recurrent, severe with psychotic symptoms (principal); E43 Unspecified severe protein-calorie malnutrition; R45.851 Suicidal ideations; E87.1 Hypo-osmolality and hyponatremia; F19.20 Other psychoactive substance dependence, uncomplicated; K50.90 Crohn's disease, unspecified, without complications; F10.10 Alcohol abuse, uncomplicated; Y90.9 Presence of alcohol in blood, level not specified; F17.200 Nicotine dependence, unspecified, uncomplicated; F41.9 Anxiety disorder, unspecified; F60.3 Borderline personality disorder; K21.9 Gastro-esophageal reflux disease without esophagitis; Z59.0 Homelessness; Z91.19 Patient's noncompliance with other medical treatment and regimen; Z91.5 Personal history of self-harm; Z88.2 Allergy status to sulfonamides; Z88.8 Allergy status to other drugs, medicaments and biological substances; K52.9 Noninfective gastroenteritis and colitis, unspecified; Z53.20 Procedure and treatment not carried out because of patient's decision for unspecified reasons; Z68.22 Body mass index [BMI] 22.0-22.9, adult

== ENCOUNTER 2018-03-02 06:22 | Emergency (ER) | payer MEDICARE, OTHER ==
[~2018-03-02] VITALS: Ht 170.2 cm; Wt 61.4 kg
[~2018-03-02 06:22] MED LIST changes: +ACID1GRA PO; -CEFU250T87 PO; +CIPR-278 PO; -DOCU100C33 PO; +METR500 PO; -OLAN10TA3 PO; -PRAZ1 PO
[2018-03-02] MEDS ORDERED: OLAN5TAB2 PO (06:35)
[2018-03-02] MEDS ORDERED: PRAZ1 PO (06:35)
[2018-03-02] MEDS ORDERED: LOPE2 PO (06:36)
[2018-03-02 06:49] LABS: BASOPHILS % (AUTO) 0.5 % (0.0-2.0); EOSINOPHILS % (AUTO) 3.4 % (1.0-6.0); HEMATOCRIT 37.6 % (36-46); HEMOGLOBIN 12.8 g/dL (12.0-16.0); LYMPHOCYTES # (AUTO) 1.1 K/uL (1.0-4.8); LYMPHOCYTES % (AUTO) 16.7 % (22.0-44.0); MEAN CORPUSCULAR HEMOGLOBIN 31.7 pg (26.0-34.0); MEAN CORPUSCULAR VOLUME 93 fL (80-100); MONOCYTES # (AUTO) 0.3 K/uL (0.1-1.0); MONOCYTES % (AUTO) 4.8 % (2.0-9.0); NEUTROPHILS # (AUTO) 4.7 K/uL (1.8-7.7); NEUTROPHILS % (AUTO) 74.6 % (40.0-70.0); PLATELET COUNT (AUTO) 249 K/uL (150-450); RED BLOOD CELL COUNT(AUTO) 4.03 MIL/uL (4.00-5.20); RED CELL DISTRIBUTION WIDTH 12.5 % (11.5-14.5)
[2018-03-02 07:00] LABS: ANION GAP 5 mmol/L (8-16); CALCIUM, TOTAL 8.2 mg/dL (8.8-10.5); CARBON DIOXIDE 31 mmol/L (22-29); CHLORIDE 104 mmol/L (98-107); CREATININE 0.67 mg/dL (0.60-1.30); GLOMERULAR FILTR. RATE CALC > 60 mL/min (>60); GLUCOSE,RANDOM 115 mg/dL (70-110); POTASSIUM 3.8 mmol/L (3.5-5.1); SODIUM SERUM 140 mmol/L (136-145); UREA NITROGEN, BLOOD 7 mg/dL (7-18)
[2018-03-02 07:07] LABS: ALANINE AMINOTRANSFERASE 38 U/L (12-78); ALBUMIN 2.8 g/dL (3.4-5.0); ALKALINE PHOSPHATASE 89 U/L (46-116); ASPARTATE AMINOTRANSFERASE 26 U/L (15-37); BILIRUBIN,TOTAL 0.2 mg/dL (0.1-1.0); LIPASE 131 U/L (73-393); TOTAL PROTEIN, SERUM 6.8 g/dL (6.4-8.2)
[2018-03-02] MEDS ORDERED: DIPHENOXYLATE/ATROP 2.5-0.025 MG TABLET PO ONE (10:30)
[2018-03-02 10:32] LABS: AMPHET/METH SCREEN,URINE NEGATIVE (NEGATIVE); BARBITURATE SCREEN, URINE NEGATIVE (NEGATIVE); BENZODIAZEPINES SCREEN,URINE NEGATIVE (NEGATIVE); CANNABINOID SCREEN,URINE NEGATIVE (NEGATIVE); COCAINE SCREEN,URINE NEGATIVE (NEGATIVE); METHADONE SCREEN, URINE NEGATIVE (NEGATIVE); OPIATE SCREEN,URINE NEGATIVE (NEGATIVE)
[2018-03-02 10:33] LABS: PHENCYCLIDINE SCREEN,URINE NEGATIVE (NEGATIVE)
[2018-03-02] MEDS ORDERED: ARIP15TA2 PO (10:35)
[2018-03-02 10:54] LABS: APPEARANCE,URINE CLEAR (CLEAR); BILIRUBIN,URINE NEGATIVE (NEGATIVE); GLUCOSE, URINE (UA) NEGATIVE (NEGATIVE); KETONES,URINE NEGATIVE (NEGATIVE); LEUKOCYTE ESTERASE ,URINE NEGATIVE (NEGATIVE); NITRATE,URINE NEGATIVE (NEGATIVE); OCCULT BLOOD,URINE NEGATIVE (NEGATIVE); PH,URINE 6.5 (5.0-8.0); PROTEIN,URINE NEGATIVE (NEGATIVE); UROBILINOGEN,URINE 0.2 mg/dL (<=1.0)
[2018-03-02 11:14] VITALS: BP 103/59
== END 2018-03-02 11:30 | disposition left against medical advice (07) ==
LOC: EMS 06:22
DX: F19.10 Other psychoactive substance abuse, uncomplicated (principal); F15.10 Other stimulant abuse, uncomplicated; F12.10 Cannabis abuse, uncomplicated; F10.10 Alcohol abuse, uncomplicated; K52.9 Noninfective gastroenteritis and colitis, unspecified; F17.210 Nicotine dependence, cigarettes, uncomplicated; F20.9 Schizophrenia, unspecified; K50.90 Crohn's disease, unspecified, without complications; Z79.899 Other long term (current) drug therapy; Z88.2 Allergy status to sulfonamides; Z88.8 Allergy status to other drugs, medicaments and biological substances
CPT/HCPCS: 36415; 80053; 80307; 81003; 83690; 85025; 99284; 99406; G0480

== ENCOUNTER 2018-04-29 23:25 | Inpatient (IN) | payer MEDICARE, MEDICAID ==
[~2018-04-29] VITALS: Ht 170.2 cm; Wt 64.0 kg
[~2018-04-29 23:25] MED LIST changes: -ACID1GRA PO; +ARIP15TA2 PO; -ARIP5TAB8 PO; -CIPR-278 PO; +LOPE2 PO; -METR500 PO; +OLAN5TAB2 PO; +PRAZ1 PO
[2018-04-30] VITALS (7 sets, daily range): BP systolic 115–120; BP diastolic 68–82
[2018-04-30 02:12] LABS: BASOPHILS % (AUTO) 0.3 % (0.0-2.0); EOSINOPHILS % (AUTO) 1.1 % (1.0-6.0); HEMATOCRIT 38.8 % (36-46); HEMOGLOBIN 13.3 g/dL (12.0-16.0); LYMPHOCYTES # (AUTO) 3.1 K/uL (1.0-4.8); LYMPHOCYTES % (AUTO) 49.8 % (22.0-44.0); MEAN CORPUSCULAR HEMOGLOBIN 31.7 pg (26.0-34.0); MEAN CORPUSCULAR HGB CONC 34.2 G/dL (31.0-37.0); MEAN CORPUSCULAR VOLUME 93 fL (80-100); MONOCYTES # (AUTO) 0.4 K/uL (0.1-1.0); MONOCYTES % (AUTO) 6.5 % (2.0-9.0); NEUTROPHILS # (AUTO) 2.6 K/uL (1.8-7.7); NEUTROPHILS % (AUTO) 42.3 % (40.0-70.0); PLATELET COUNT (AUTO) 201 K/uL (150-450); RED BLOOD CELL COUNT(AUTO) 4.19 MIL/uL (4.00-5.20); RED CELL DISTRIBUTION WIDTH 13.7 % (11.5-14.5)
[2018-04-30 02:20] LABS: ANION GAP 11 mmol/L (8-16); CALCIUM, TOTAL 8.5 mg/dL (8.8-10.5); CARBON DIOXIDE 30 mmol/L (22-29); CHLORIDE 100 mmol/L (98-107); CREATININE 0.52 mg/dL (0.60-1.30); GLOMERULAR FILTR. RATE CALC > 60 mL/min (>60); GLUCOSE,RANDOM 80 mg/dL (70-110); POTASSIUM 3.8 mmol/L (3.5-5.1); SODIUM SERUM 141 mmol/L (136-145); UREA NITROGEN, BLOOD 13 mg/dL (7-18)
[2018-04-30 02:25] LABS: ALANINE AMINOTRANSFERASE 50 U/L (12-78); ALBUMIN 3.7 g/dL (3.4-5.0); ALKALINE PHOSPHATASE 93 U/L (46-116); ASPARTATE AMINOTRANSFERASE 80 U/L (15-37); BILIRUBIN,TOTAL 0.4 mg/dL (0.1-1.0); TOTAL PROTEIN, SERUM 8.4 g/dL (6.4-8.2)
[2018-04-30 05:11] LABS: AMPHET/METH SCREEN,URINE POSITIVE (NEGATIVE); BARBITURATE SCREEN, URINE NEGATIVE (NEGATIVE); BENZODIAZEPINES SCREEN,URINE NEGATIVE (NEGATIVE); CANNABINOID SCREEN,URINE POSITIVE (NEGATIVE); COCAINE SCREEN,URINE NEGATIVE (NEGATIVE); METHADONE SCREEN, URINE NEGATIVE (NEGATIVE); OPIATE SCREEN,URINE NEGATIVE (NEGATIVE)
[2018-04-30 05:13] LABS: PHENCYCLIDINE SCREEN,URINE NEGATIVE (NEGATIVE)
[2018-04-30] MEDS ORDERED: ChlordiazePOXIDE HCL 25 MG CAPSULE PO PRN (12:00)
[2018-04-30] MEDS ORDERED: MAGNESIUM HYDROXIDE SUSPENSION 30 ML UDCUP PO PRN ×2 (14:30)
[2018-04-30] MEDS ORDERED: CloNIDine HCL 0.1 MG TABLET PO PRN ×2 (14:30)
[2018-04-30] MEDS ORDERED: GuaiFENesin/D-METHORPHAN [SUGAR-FREE] 200-20MG/10 ML SYRUP UDCUP PO PRN ×2 (14:30)
[2018-04-30] MEDS ORDERED: MAG HYDROX/AL HYDROX/SIMETH ES 30 ML SUSPENSION UDCUP PO PRN ×2 (14:30)
[2018-04-30] MEDS ORDERED: ALBUTEROL SULFATE HFA 90 MCG/PUFF 8 GM INHALER IH PRN (14:30)
[2018-04-30] MEDS ORDERED: NICOTINE 14 MG/24 HOUR PATCH TD PRN ×2 (14:30)
[2018-04-30] MEDS ORDERED: PETROLATUM,WHITE 71 GM JELLY TP PRN ×2 (14:30)
[2018-04-30] MEDS ORDERED: ONDANSETRON HCL 4 MG TABLET PO PRN (14:30)
[2018-04-30] MEDS ORDERED: IBUPROFEN 400 MG TABLET PO PRN ×2 (14:30)
[2018-04-30] MEDS ORDERED: DOCUSATE SODIUM 100 MG CAPSULE PO PRN ×2 (14:30)
[2018-04-30] MEDS ORDERED: ACETAMINOPHEN 325 MG TABLET PO PRN ×2 (14:30)
[2018-04-30] MEDS ORDERED: LOPERAMIDE HCL 2 MG CAPSULE PO PRN ×2 (14:30)
[2018-04-30] MEDS: PRAZOSIN HCL 1 MG CAPSULE PO SCH (20:19)
[2018-04-30] MEDS: MIRTAZAPINE 15 MG TABLET PO SCH (20:20)
[2018-04-30] MEDS: TraZODone HCL 50 MG TABLET PO SCH (20:20)
[2018-05-01 03:12] VITALS: BP 118/78
[2018-05-01 05:53] VITALS: BP 121/68
[2018-05-01] MEDS ORDERED: ChlordiazePOXIDE HCL 25 MG CAPSULE PO PRN (07:00)
[2018-05-01 08:04] VITALS: BP 120/79
[2018-05-01 08:43] LABS: HEMOGLOBIN A1C 4.6 % (4.5-6.2)
[2018-05-01] MEDS: ARIPiprazole 15 MG TABLET PO SCH (08:50)
[2018-05-01] MEDS: ChlordiazePOXIDE HCL 25 MG CAPSULE PO SCH ×4 (08:51→20:25)
[2018-05-01 09:05] LABS: ALANINE AMINOTRANSFERASE 36 U/L (12-78); ALBUMIN 3.3 g/dL (3.4-5.0); ALKALINE PHOSPHATASE 70 U/L (46-116); ANION GAP 6 mmol/L (8-16); ASPARTATE AMINOTRANSFERASE 34 U/L (15-37); BILIRUBIN,TOTAL 0.6 mg/dL (0.1-1.0); CALCIUM, TOTAL 8.4 mg/dL (8.8-10.5); CARBON DIOXIDE 31 mmol/L (22-29); CHLORIDE 101 mmol/L (98-107); CHOL/HDL RATIO 1.4 (3.9-5.7); CHOLESTEROL 136 mg/dL (131-200); CREATININE 0.62 mg/dL (0.60-1.30); GLOMERULAR FILTR. RATE CALC > 60 mL/min (>60); GLUCOSE,RANDOM 86 mg/dL (70-110); HDL CHOLESTEROL 95 mg/dL (40-60); LDL CHOL (CALC.) 32 mg/dL (0-130); POTASSIUM 3.5 mmol/L (3.5-5.1); SODIUM SERUM 138 mmol/L (136-145); THYROID STIMULATING HORMONE 0.62 uIU/mL (0.36-3.74); TOTAL PROTEIN, SERUM 7.3 g/dL (6.4-8.2); TRIGLYCERIDES 47 mg/dL (15-150); UREA NITROGEN, BLOOD 13 mg/dL (7-18)
[2018-05-01 16:16] VITALS: BP 120/75
[2018-05-01 20:15] VITALS: BP 118/90
[2018-05-01] MEDS: TraZODone HCL 50 MG TABLET PO SCH (20:25)
[2018-05-01] MEDS: PRAZOSIN HCL 1 MG CAPSULE PO SCH (20:25)
[2018-05-01] MEDS: MIRTAZAPINE 15 MG TABLET PO SCH (20:25)
[2018-05-01] MEDS: ZOLPIDEM TARTRATE 10 MG TABLET PO PRN (22:41)
[2018-05-02 03:52] VITALS: BP 118/62
[2018-05-02 08:17] VITALS: BP 121/52
[2018-05-02] MEDS: ARIPiprazole 15 MG TABLET PO SCH (08:18)
[2018-05-02] MEDS: ChlordiazePOXIDE HCL 25 MG CAPSULE PO SCH ×4 (08:18→19:35)
[2018-05-02 08:36] VITALS: BP 121/61
[2018-05-02 12:20] VITALS: BP 111/68
[2018-05-02 16:05] VITALS: BP 116/85
[2018-05-02] MEDS: TraZODone HCL 50 MG TABLET PO SCH (19:35)
[2018-05-02] MEDS: PRAZOSIN HCL 1 MG CAPSULE PO SCH (19:36)
[2018-05-02] MEDS: MIRTAZAPINE 15 MG TABLET PO SCH (19:37)
[2018-05-02 20:44] VITALS: BP 111/77
[2018-05-03] VITALS (7 sets, daily range): BP systolic 100–118; BP diastolic 61–71
[2018-05-03] MEDS: HALOPERIDOL 5 MG TABLET PO PRN (02:00)
[2018-05-03] MEDS ORDERED: ChlordiazePOXIDE HCL 10 MG CAPSULE PO PRN (07:00)
[2018-05-03] MEDS: ChlordiazePOXIDE HCL 10 MG CAPSULE PO SCH ×4 (08:51→20:41)
[2018-05-03] MEDS: ARIPiprazole 15 MG TABLET PO SCH (08:51)
[2018-05-03] MEDS: MIRTAZAPINE 15 MG TABLET PO SCH (20:41)
[2018-05-03] MEDS: PRAZOSIN HCL 1 MG CAPSULE PO SCH (20:41)
[2018-05-03] MEDS: TraZODone HCL 50 MG TABLET PO SCH (20:41)
[2018-05-03] MEDS: ZOLPIDEM TARTRATE 10 MG TABLET PO PRN (23:04)
[2018-05-04 00:46] VITALS: BP 115/81
[2018-05-04] MEDS: HALOPERIDOL 5 MG TABLET PO PRN (00:50)
[2018-05-04] MEDS ORDERED: ChlordiazePOXIDE HCL 10 MG CAPSULE PO PRN (07:00)
[2018-05-04 08:12] VITALS: BP 109/65
[2018-05-04] MEDS: ARIPiprazole 15 MG TABLET PO SCH (08:55)
[2018-05-04 10:15] VITALS: BP 109/65
[2018-05-04 16:00] VITALS: BP 105/64
[2018-05-04] MEDS: MIRTAZAPINE 15 MG TABLET PO SCH (21:00)
[2018-05-04] MEDS: TraZODone HCL 50 MG TABLET PO SCH (21:00)
[2018-05-04] MEDS: PRAZOSIN HCL 1 MG CAPSULE PO SCH (21:12)
[2018-05-05 05:39] VITALS: BP 111/66
[2018-05-05 08:05] VITALS: BP 108/73
[2018-05-05] MEDS: ARIPiprazole 15 MG TABLET PO SCH (08:05)
[2018-05-05] MEDS ORDERED: ARIPiprazole 5 MG TABLET PO ONE (12:45)
[2018-05-05 16:16] VITALS: BP 102/63
[2018-05-05 20:05] VITALS: BP 125/76
[2018-05-05] MEDS: TraZODone HCL 50 MG TABLET PO SCH (20:06)
[2018-05-05] MEDS: MIRTAZAPINE 15 MG TABLET PO SCH (20:06)
[2018-05-05] MEDS: PRAZOSIN HCL 1 MG CAPSULE PO SCH (20:07)
[2018-05-06 02:28] VITALS: BP 110/68
[2018-05-06] MEDS: ZOLPIDEM TARTRATE 10 MG TABLET PO PRN (02:31)
[2018-05-06] MEDS: HALOPERIDOL 5 MG TABLET PO PRN (02:31)
[2018-05-06 08:13] VITALS: BP 106/70
[2018-05-06] MEDS: ARIPiprazole 15 MG TABLET PO SCH (08:24)
[2018-05-06 16:41] VITALS: BP 101/60
[2018-05-06] MEDS: MIRTAZAPINE 15 MG TABLET PO SCH (20:08)
[2018-05-06] MEDS: PRAZOSIN HCL 1 MG CAPSULE PO SCH (20:08)
[2018-05-06] MEDS: TraZODone HCL 50 MG TABLET PO SCH (20:08)
[2018-05-06 20:11] VITALS: BP 112/71
[2018-05-07 02:30] VITALS: BP 106/76
[2018-05-07] MEDS: HALOPERIDOL 5 MG TABLET PO PRN (02:32)
[2018-05-07] MEDS: ZOLPIDEM TARTRATE 10 MG TABLET PO PRN (02:32)
[2018-05-07 08:20] VITALS: BP 109/66
[2018-05-07] MEDS ORDERED: ARIPiprazole LAUROXIL ER SUSPENSION 882 MG/3.2 ML SYRINGE IM SCH (09:00)
[2018-05-07] MEDS: ARIPiprazole 15 MG TABLET PO SCH (09:34)
[2018-05-14] MEDS ORDERED: ARIPiprazole LAUROXIL ER SUSPENSION 882 MG/3.2 ML SYRINGE IM SCH (09:00)
== END 2018-05-07 12:15 | disposition home or self-care (01) | DRG 885 ==
LOC: EMS 23:26 → B2X 04-30 11:21
PROVIDERS: ADMIT Psychiatry & Neurology Psychiatry; ATTEND Psychiatry & Neurology Psychiatry
DX: F33.3 Major depressive disorder, recurrent, severe with psychotic symptoms (principal); F10.229 Alcohol dependence with intoxication, unspecified; F10.239 Alcohol dependence with withdrawal, unspecified; K50.90 Crohn's disease, unspecified, without complications; R45.851 Suicidal ideations; F15.10 Other stimulant abuse, uncomplicated; F17.200 Nicotine dependence, unspecified, uncomplicated; Z71.6 Tobacco abuse counseling; Z71.41 Alcohol abuse counseling and surveillance of alcoholic; Z71.51 Drug abuse counseling and surveillance of drug abuser; F41.9 Anxiety disorder, unspecified; K21.9 Gastro-esophageal reflux disease without esophagitis; K70.30 Alcoholic cirrhosis of liver without ascites; Z59.0 Homelessness; Z91.19 Patient's noncompliance with other medical treatment and regimen; Z91.5 Personal history of self-harm; Z28.21 Immunization not carried out because of patient refusal; Z79.899 Other long term (current) drug therapy
CPT/HCPCS: 83036; 84443; G0480

== ENCOUNTER 2018-07-04 16:21 | Inpatient (IN) | payer MEDICARE, MEDICAID ==
[~2018-07-04] VITALS: Ht 170.2 cm; Wt 66.2 kg
[~2018-07-04 16:21] MED LIST changes: -GABA-531 PO; -LOPE2 PO; -OLAN5TAB2 PO; -OMEP20 PO
[2018-07-04] MEDS ORDERED: DIPH-654 PO (17:36)
[2018-07-04 18:00] LABS: BASOPHILS % (AUTO) 0.6 % (0.0-2.0); EOSINOPHILS % (AUTO) 2.6 % (1.0-6.0); HEMATOCRIT 37.1 % (36-46); HEMOGLOBIN 12.8 g/dL (12.0-16.0); LYMPHOCYTES # (AUTO) 2.2 K/uL (1.0-4.8); LYMPHOCYTES % (AUTO) 43.3 % (22.0-44.0); MEAN CORPUSCULAR HEMOGLOBIN 30.9 pg (26.0-34.0); MEAN CORPUSCULAR HGB CONC 34.4 G/dL (31.0-37.0); MEAN CORPUSCULAR VOLUME 90 fL (80-100); MONOCYTES # (AUTO) 0.3 K/uL (0.1-1.0); MONOCYTES % (AUTO) 5.1 % (2.0-9.0); NEUTROPHILS # (AUTO) 2.5 K/uL (1.8-7.7); NEUTROPHILS % (AUTO) 48.4 % (40.0-70.0); PLATELET COUNT (AUTO) 196 K/uL (150-450); RED BLOOD CELL COUNT(AUTO) 4.13 MIL/uL (4.00-5.20); RED CELL DISTRIBUTION WIDTH 12.7 % (11.5-14.5)
[2018-07-04 18:13] LABS: ALANINE AMINOTRANSFERASE 26 U/L (12-78); ALBUMIN 3.5 g/dL (3.4-5.0); ALKALINE PHOSPHATASE 120 U/L (46-116); ANION GAP 9 mmol/L (8-16); ASPARTATE AMINOTRANSFERASE 21 U/L (15-37); BILIRUBIN,TOTAL 0.3 mg/dL (0.1-1.0); CALCIUM, TOTAL 8.9 mg/dL (8.8-10.5); CARBON DIOXIDE 26 mmol/L (22-29); CHLORIDE 106 mmol/L (98-107); CREATININE 0.49 mg/dL (0.60-1.30); GLOMERULAR FILTR. RATE CALC > 60 mL/min (>60); GLUCOSE,RANDOM 80 mg/dL (70-110); SODIUM SERUM 141 mmol/L (136-145); TOTAL PROTEIN, SERUM 7.9 g/dL (6.4-8.2); UREA NITROGEN, BLOOD 13 mg/dL (7-18)
[2018-07-04 21:30] LABS: APPEARANCE,URINE TURBID (CLEAR); GLUCOSE, URINE (UA) NEGATIVE (NEGATIVE); KETONES,URINE TRACE mg/dL (NEGATIVE); LEUKOCYTE ESTERASE ,URINE LARGE (NEGATIVE); NITRATE,URINE NEGATIVE (NEGATIVE); OCCULT BLOOD,URINE LARGE (NEGATIVE); PROTEIN,URINE TRACE (NEGATIVE)
[2018-07-04 21:35] LABS: AMPHET/METH SCREEN,URINE POSITIVE (NEGATIVE); BARBITURATE SCREEN, URINE NEGATIVE (NEGATIVE); BENZODIAZEPINES SCREEN,URINE POSITIVE (NEGATIVE); BILIRUBIN,URINE PRELIM. POSITIVE (NEGATIVE); CANNABINOID SCREEN,URINE POSITIVE (NEGATIVE); COCAINE SCREEN,URINE NEGATIVE (NEGATIVE); METHADONE SCREEN, URINE NEGATIVE (NEGATIVE); OPIATE SCREEN,URINE NEGATIVE (NEGATIVE); PHENCYCLIDINE SCREEN,URINE NEGATIVE (NEGATIVE)
[2018-07-04 21:51] LABS: BACTERIA,URINE Many /HPF (None Seen); RBC,URINE 26-50 /HPF (0-2); SQUAMOUS EPITHELIAL CELL,UR Few /LPF (None Seen); WBC,URINE 51-100 /HPF (0-5)
[2018-07-05] VITALS (11 sets, daily range): BP systolic 106–136; BP diastolic 61–92
[2018-07-05] MEDS: ZOLPIDEM TARTRATE 10 MG TABLET PO PRN ×2 (00:09→20:50)
[2018-07-05] MEDS ORDERED: PNEUMOCOCCAL VACCINE POLYVALENT 0.5 ML VIAL [PPSV23] IM ONE (04:00)
[2018-07-05] MEDS ORDERED: ALBUTEROL SULFATE HFA 90 MCG/PUFF 8 GM INHALER IH PRN ×2 (07:45)
[2018-07-05] MEDS ORDERED: NICOTINE 14 MG/24 HOUR PATCH TD PRN (07:45)
[2018-07-05] MEDS ORDERED: PETROLATUM,WHITE 71 GM JELLY TP PRN (07:45)
[2018-07-05] MEDS ORDERED: IBUPROFEN 400 MG TABLET PO PRN (07:45)
[2018-07-05] MEDS ORDERED: ONDANSETRON HCL 4 MG TABLET PO PRN (07:45)
[2018-07-05] MEDS ORDERED: ACETAMINOPHEN 325 MG TABLET PO PRN (07:45)
[2018-07-05] MEDS ORDERED: MAGNESIUM HYDROXIDE SUSPENSION 30 ML UDCUP PO PRN (07:45)
[2018-07-05] MEDS ORDERED: MAG HYDROX/AL HYDROX/SIMETH ES 30 ML SUSPENSION UDCUP PO PRN (07:45)
[2018-07-05] MEDS ORDERED: CloNIDine HCL 0.1 MG TABLET PO PRN (07:45)
[2018-07-05] MEDS ORDERED: DOCUSATE SODIUM 100 MG CAPSULE PO PRN (07:45)
[2018-07-05 08:40] LABS: BASOPHILS % (AUTO) 0.4 % (0.0-2.0); EOSINOPHILS % (AUTO) 2.2 % (1.0-6.0); HEMATOCRIT 36.5 % (36-46); HEMOGLOBIN 12.4 g/dL (12.0-16.0); LYMPHOCYTES # (AUTO) 2.1 K/uL (1.0-4.8); LYMPHOCYTES % (AUTO) 43.9 % (22.0-44.0); MEAN CORPUSCULAR HEMOGLOBIN 30.8 pg (26.0-34.0); MEAN CORPUSCULAR HGB CONC 33.9 G/dL (31.0-37.0); MEAN CORPUSCULAR VOLUME 91 fL (80-100); MONOCYTES # (AUTO) 0.3 K/uL (0.1-1.0); MONOCYTES % (AUTO) 5.9 % (2.0-9.0); NEUTROPHILS # (AUTO) 2.2 K/uL (1.8-7.7); NEUTROPHILS % (AUTO) 47.6 % (40.0-70.0); PLATELET COUNT (AUTO) 202 K/uL (150-450); RED BLOOD CELL COUNT(AUTO) 4.03 MIL/uL (4.00-5.20); RED CELL DISTRIBUTION WIDTH 12.9 % (11.5-14.5)
[2018-07-05 08:47] LABS: HEMOGLOBIN A1C 5.2 % (4.5-6.2)
[2018-07-05 09:11] LABS: ALANINE AMINOTRANSFERASE 26 U/L (12-78); ALBUMIN 3.2 g/dL (3.4-5.0); ALKALINE PHOSPHATASE 109 U/L (46-116); ANION GAP 6 mmol/L (8-16); ASPARTATE AMINOTRANSFERASE 20 U/L (15-37); BILIRUBIN,TOTAL 0.5 mg/dL (0.1-1.0); CALCIUM, TOTAL 8.7 mg/dL (8.8-10.5); CARBON DIOXIDE 30 mmol/L (22-29); CHLORIDE 108 mmol/L (98-107); CHOL/HDL RATIO 1.4 (3.9-5.7); CHOLESTEROL 152 mg/dL (131-200); CREATININE 0.65 mg/dL (0.60-1.30); FREE T4 (FREE THYROXINE) 0.85 ng/dL (0.76-1.46); GLOMERULAR FILTR. RATE CALC > 60 mL/min (>60); GLUCOSE,RANDOM 86 mg/dL (70-110); HDL CHOLESTEROL 108 mg/dL (40-60); LDL CHOL (CALC.) 36 mg/dL (0-130); POTASSIUM 4.5 mmol/L (3.5-5.1); SODIUM SERUM 144 mmol/L (136-145); THYROID STIMULATING HORMONE 1.99 uIU/mL (0.36-3.74); TRIGLYCERIDES 40 mg/dL (15-150); UREA NITROGEN, BLOOD 21 mg/dL (7-18)
[2018-07-05] MEDS: CIPROFLOXACIN HCL 500 MG TABLET PO SCH (17:54)
[2018-07-05] MEDS: MIRTAZAPINE 15 MG TABLET PO SCH (21:28)
[2018-07-05] MEDS: TraZODone HCL 50 MG TABLET PO SCH (21:28)
[2018-07-05] MEDS: MetroNIDAZOLE 500 MG TABLET PO SCH (21:31)
[2018-07-06 01:43] VITALS: BP 117/78
[2018-07-06 03:30] VITALS: BP 116/82
[2018-07-06 08:13] VITALS: BP 135/71
[2018-07-06 08:44] LABS: HEMOGLOBIN A1C 5.2 % (4.5-6.2)
[2018-07-06 09:07] LABS: CHOL/HDL RATIO 1.4 (3.9-5.7); THYROID STIMULATING HORMONE 0.92 uIU/mL (0.36-3.74)
[2018-07-06] MEDS: MetroNIDAZOLE 500 MG TABLET PO SCH ×3 (09:30→16:30)
[2018-07-06] MEDS: ARIPiprazole 15 MG TABLET PO SCH (09:30)
[2018-07-06] MEDS: CIPROFLOXACIN HCL 500 MG TABLET PO SCH ×2 (09:30→16:30)
[2018-07-06 11:30] VITALS: BP 105/68
[2018-07-06] MEDS: HALOPERIDOL 5 MG TABLET PO PRN ×2 (14:35→22:09)
[2018-07-06 16:18] VITALS: BP 101/65
[2018-07-06 20:00] VITALS: BP 112/62
[2018-07-06] MEDS: TraZODone HCL 50 MG TABLET PO SCH (20:18)
[2018-07-06] MEDS: MIRTAZAPINE 15 MG TABLET PO SCH (20:18)
[2018-07-07 00:29] VITALS: BP 116/60
[2018-07-07] MEDS: ZOLPIDEM TARTRATE 10 MG TABLET PO PRN (02:43)
[2018-07-07] MEDS: HALOPERIDOL 5 MG TABLET PO PRN (02:44)
[2018-07-07] MEDS: MetroNIDAZOLE 500 MG TABLET PO SCH ×3 (08:31→16:12)
[2018-07-07] MEDS: CIPROFLOXACIN HCL 500 MG TABLET PO SCH (08:31)
[2018-07-07] MEDS: ARIPiprazole 15 MG TABLET PO SCH (08:31)
[2018-07-07 08:54] VITALS: BP 106/63
[2018-07-07] MEDS ORDERED: GuaiFENesin/D-METHORPHAN [SUGAR-FREE] 200-20MG/10 ML SYRUP UDCUP PO PRN (14:00)
[2018-07-07] MEDS: AMOX TR/POT CLAV 875 MG/125 MG TABLET PO SCH ×2 (14:11→20:10)
[2018-07-07 16:26] VITALS: BP 109/68
[2018-07-07] MEDS: GuaiFENesin/D-METHORPHAN [SUGAR-FREE] 200-20MG/10 ML SYRUP UDCUP PO PRN (19:07)
[2018-07-07] MEDS: MIRTAZAPINE 15 MG TABLET PO SCH (20:10)
[2018-07-07] MEDS: TraZODone HCL 50 MG TABLET PO SCH (20:10)
[2018-07-08 00:52] VITALS: BP 110/63
[2018-07-08] MEDS: ZOLPIDEM TARTRATE 10 MG TABLET PO PRN (01:30)
[2018-07-08] MEDS: GuaiFENesin/D-METHORPHAN [SUGAR-FREE] 200-20MG/10 ML SYRUP UDCUP PO PRN ×3 (01:30→17:13)
[2018-07-08 08:06] VITALS: BP 117/78
[2018-07-08] MEDS: ARIPiprazole 15 MG TABLET PO SCH (08:47)
[2018-07-08] MEDS: AMOX TR/POT CLAV 875 MG/125 MG TABLET PO SCH ×2 (08:47→20:08)
[2018-07-08] MEDS: MetroNIDAZOLE 500 MG TABLET PO SCH ×3 (08:47→16:51)
[2018-07-08 16:10] VITALS: BP 112/67
[2018-07-08] MEDS: TraZODone HCL 50 MG TABLET PO SCH (20:08)
[2018-07-08] MEDS: MIRTAZAPINE 15 MG TABLET PO SCH (20:08)
[2018-07-09 00:13] VITALS: BP 122/87
[2018-07-09] MEDS: GuaiFENesin/D-METHORPHAN [SUGAR-FREE] 200-20MG/10 ML SYRUP UDCUP PO PRN ×3 (00:17→20:08)
[2018-07-09] MEDS: ZOLPIDEM TARTRATE 10 MG TABLET PO PRN (00:17)
[2018-07-09] MEDS: MetroNIDAZOLE 500 MG TABLET PO SCH ×3 (08:28→16:09)
[2018-07-09] MEDS: AMOX TR/POT CLAV 875 MG/125 MG TABLET PO SCH ×2 (08:28→20:08)
[2018-07-09] MEDS: ARIPiprazole 15 MG TABLET PO SCH (08:28)
[2018-07-09] MEDS: LOPERAMIDE HCL 2 MG CAPSULE PO PRN ×2 (14:54→20:08)
[2018-07-09 16:00] VITALS: BP 101/65
[2018-07-09] MEDS: MIRTAZAPINE 15 MG TABLET PO SCH (20:08)
[2018-07-09] MEDS: TraZODone HCL 50 MG TABLET PO SCH (20:08)
[2018-07-10 00:39] VITALS: BP 108/64
[2018-07-10] MEDS: ARIPiprazole 15 MG TABLET PO SCH (08:08)
[2018-07-10] MEDS: MetroNIDAZOLE 500 MG TABLET PO SCH ×3 (08:08→16:30)
[2018-07-10] MEDS: AMOX TR/POT CLAV 875 MG/125 MG TABLET PO SCH ×2 (08:08→20:29)
[2018-07-10] MEDS: LOPERAMIDE HCL 2 MG CAPSULE PO PRN (08:10)
[2018-07-10] MEDS: GuaiFENesin/D-METHORPHAN [SUGAR-FREE] 200-20MG/10 ML SYRUP UDCUP PO PRN (08:11)
[2018-07-10 08:30] VITALS: BP 108/68
[2018-07-10] MEDS: GABAPENTIN 300 MG CAPSULE PO SCH ×2 (12:46→16:30)
[2018-07-10 16:02] VITALS: BP 112/68
[2018-07-10] MEDS: MIRTAZAPINE 15 MG TABLET PO SCH (20:29)
[2018-07-10] MEDS: TraZODone HCL 50 MG TABLET PO SCH (20:29)
[2018-07-10] MEDS: OLANZapine 10 MG TABLET PO SCH (20:29)
[2018-07-11 00:10] VITALS: BP 116/71
[2018-07-11] MEDS: LOPERAMIDE HCL 2 MG CAPSULE PO PRN ×3 (01:56→17:16)
[2018-07-11] MEDS: GuaiFENesin/D-METHORPHAN [SUGAR-FREE] 200-20MG/10 ML SYRUP UDCUP PO PRN ×2 (01:56→14:56)
[2018-07-11 08:02] VITALS: BP 97/62
[2018-07-11] MEDS: MetroNIDAZOLE 500 MG TABLET PO SCH ×3 (08:20→16:18)
[2018-07-11] MEDS: AMOX TR/POT CLAV 875 MG/125 MG TABLET PO SCH ×2 (08:20→20:36)
[2018-07-11] MEDS: GABAPENTIN 300 MG CAPSULE PO SCH ×3 (08:20→16:18)
[2018-07-11] MEDS: HALOPERIDOL 5 MG TABLET PO PRN (12:57)
[2018-07-11 16:12] VITALS: BP 101/61
[2018-07-11] MEDS: OLANZapine 10 MG TABLET PO SCH (20:36)
[2018-07-11] MEDS: TraZODone HCL 50 MG TABLET PO SCH (20:36)
[2018-07-11] MEDS: MIRTAZAPINE 15 MG TABLET PO SCH (20:36)
[2018-07-12 01:57] VITALS: BP 110/60
[2018-07-12] MEDS: HALOPERIDOL 5 MG TABLET PO PRN (02:07)
[2018-07-12] MEDS: GuaiFENesin/D-METHORPHAN [SUGAR-FREE] 200-20MG/10 ML SYRUP UDCUP PO PRN ×3 (02:08→16:52)
[2018-07-12] MEDS: GABAPENTIN 300 MG CAPSULE PO SCH ×3 (08:02→16:03)
[2018-07-12] MEDS: AMOX TR/POT CLAV 875 MG/125 MG TABLET PO SCH ×2 (08:03→20:04)
[2018-07-12] MEDS: MetroNIDAZOLE 500 MG TABLET PO SCH ×3 (08:03→16:03)
[2018-07-12] MEDS: MULTIVITAMINS WITH MINERALS, THERAPEUTIC TABLET PO SCH (08:03)
[2018-07-12 08:07] VITALS: BP 129/66
[2018-07-12] MEDS: LOPERAMIDE HCL 2 MG CAPSULE PO PRN ×2 (08:33→16:59)
[2018-07-12 16:03] VITALS: BP 111/68
[2018-07-12] MEDS: OLANZapine 10 MG TABLET PO SCH (20:04)
[2018-07-12] MEDS: TraZODone HCL 50 MG TABLET PO SCH (20:05)
[2018-07-12] MEDS: MIRTAZAPINE 15 MG TABLET PO SCH (20:05)
[2018-07-13 00:56] VITALS: BP 103/67
[2018-07-13] MEDS: LACTOBACILLUS ACIDOPHILUS/BULGARICUS GRANULES PACKET PO SCH ×3 (08:05→16:20)
[2018-07-13] MEDS: MULTIVITAMINS WITH MINERALS, THERAPEUTIC TABLET PO SCH (08:05)
[2018-07-13] MEDS: MetroNIDAZOLE 500 MG TABLET PO SCH ×3 (08:05→16:20)
[2018-07-13] MEDS: GABAPENTIN 300 MG CAPSULE PO SCH ×3 (08:05→16:20)
[2018-07-13] MEDS: AMOX TR/POT CLAV 875 MG/125 MG TABLET PO SCH ×2 (08:05→20:11)
[2018-07-13] MEDS: GuaiFENesin/D-METHORPHAN [SUGAR-FREE] 200-20MG/10 ML SYRUP UDCUP PO PRN (08:24)
[2018-07-13] MEDS: LOPERAMIDE HCL 2 MG CAPSULE PO PRN (08:24)
[2018-07-13 08:28] VITALS: BP 109/62
[2018-07-13] MEDS: DIPHENOXYLATE/ATROP 2.5-0.025 MG TABLET PO PRN (14:33)
[2018-07-13 17:58] VITALS: BP 106/74
[2018-07-13] MEDS: TraZODone HCL 50 MG TABLET PO SCH (20:11)
[2018-07-13] MEDS: OLANZapine 10 MG TABLET PO SCH (20:11)
[2018-07-13] MEDS: MIRTAZAPINE 15 MG TABLET PO SCH (20:11)
[2018-07-14 01:52] VITALS: BP 110/68
[2018-07-14] MEDS: DIPHENOXYLATE/ATROP 2.5-0.025 MG TABLET PO PRN (01:54)
[2018-07-14] MEDS: ZOLPIDEM TARTRATE 10 MG TABLET PO PRN (01:54)
[2018-07-14] MEDS: AMOX TR/POT CLAV 875 MG/125 MG TABLET PO SCH ×2 (08:07→20:27)
[2018-07-14] MEDS: MULTIVITAMINS WITH MINERALS, THERAPEUTIC TABLET PO SCH (08:07)
[2018-07-14] MEDS: LACTOBACILLUS ACIDOPHILUS/BULGARICUS GRANULES PACKET PO SCH ×3 (08:07→16:37)
[2018-07-14] MEDS: GABAPENTIN 300 MG CAPSULE PO SCH ×3 (08:07→16:37)
[2018-07-14] MEDS: MetroNIDAZOLE 500 MG TABLET PO SCH ×3 (08:07→16:37)
[2018-07-14] MEDS: GuaiFENesin/D-METHORPHAN [SUGAR-FREE] 200-20MG/10 ML SYRUP UDCUP PO PRN ×2 (08:14→21:07)
[2018-07-14 08:21] VITALS: BP 100/60
[2018-07-14 16:07] VITALS: BP 102/69
[2018-07-14] MEDS: OLANZapine 10 MG TABLET PO SCH (20:27)
[2018-07-14] MEDS: MIRTAZAPINE 15 MG TABLET PO SCH (20:27)
[2018-07-14] MEDS: TraZODone HCL 50 MG TABLET PO SCH (20:28)
[2018-07-15] MEDS: ZOLPIDEM TARTRATE 10 MG TABLET PO PRN (02:11)
[2018-07-15 04:37] VITALS: BP 108/72
[2018-07-15] MEDS: DIPHENOXYLATE/ATROP 2.5-0.025 MG TABLET PO PRN ×2 (07:10→16:27)
[2018-07-15] MEDS: GABAPENTIN 300 MG CAPSULE PO SCH ×3 (08:44→16:40)
[2018-07-15] MEDS: MetroNIDAZOLE 500 MG TABLET PO SCH ×3 (08:44→16:41)
[2018-07-15] MEDS: LACTOBACILLUS ACIDOPHILUS/BULGARICUS GRANULES PACKET PO SCH ×3 (08:44→16:41)
[2018-07-15] MEDS: MULTIVITAMINS WITH MINERALS, THERAPEUTIC TABLET PO SCH (08:44)
[2018-07-15 09:49] VITALS: BP 107/70
[2018-07-15 16:00] VITALS: BP 121/68
[2018-07-15] MEDS: GuaiFENesin/D-METHORPHAN [SUGAR-FREE] 200-20MG/10 ML SYRUP UDCUP PO PRN (16:40)
[2018-07-15] MEDS: MIRTAZAPINE 15 MG TABLET PO SCH (20:25)
[2018-07-15] MEDS: TraZODone HCL 50 MG TABLET PO SCH (20:26)
[2018-07-15] MEDS: OLANZapine 10 MG TABLET PO SCH (20:26)
[2018-07-16 01:00] VITALS: BP 115/76
[2018-07-16] MEDS: ZOLPIDEM TARTRATE 10 MG TABLET PO PRN (01:08)
[2018-07-16] MEDS: GuaiFENesin/D-METHORPHAN [SUGAR-FREE] 200-20MG/10 ML SYRUP UDCUP PO PRN (06:53)
[2018-07-16] MEDS: DIPHENOXYLATE/ATROP 2.5-0.025 MG TABLET PO PRN (06:53)
[2018-07-16 08:03] VITALS: BP 129/65
[2018-07-16] MEDS: GABAPENTIN 300 MG CAPSULE PO SCH ×2 (08:13→12:37)
[2018-07-16] MEDS: MetroNIDAZOLE 500 MG TABLET PO SCH ×2 (08:13→12:37)
[2018-07-16] MEDS: LACTOBACILLUS ACIDOPHILUS/BULGARICUS GRANULES PACKET PO SCH ×2 (08:13→12:38)
[2018-07-16] MEDS: MULTIVITAMINS WITH MINERALS, THERAPEUTIC TABLET PO SCH (08:13)
[2018-07-16 09:15] LABS: ANION GAP 7 mmol/L (8-16); CALCIUM, TOTAL 9.1 mg/dL (8.8-10.5); CARBON DIOXIDE 28 mmol/L (22-29); CHLORIDE 102 mmol/L (98-107); CREATININE 0.68 mg/dL (0.60-1.30); GLOMERULAR FILTR. RATE CALC > 60 mL/min (>60); GLUCOSE,RANDOM 84 mg/dL (70-110); POTASSIUM 4.5 mmol/L (3.5-5.1); SODIUM SERUM 137 mmol/L (136-145); UREA NITROGEN, BLOOD 20 mg/dL (7-18)
[2018-07-16] MEDS ORDERED: GABA100C PO (12:39)
[2018-07-16] MEDS ORDERED: MIRT45TA59 PO (12:42)
[2018-07-16] MEDS ORDERED: LACT1POW8 PO (12:49)
[2018-07-16] MEDS ORDERED: TRAZ-219 PO (12:49)
[2018-07-16] MEDS ORDERED: MULT-1203 PO (12:49)
[2018-07-16] MEDS ORDERED: OLAN15TA2 PO (12:49)
== END 2018-07-16 13:25 | disposition home or self-care (01) | DRG 885 ==
LOC: EMS 16:23 → B2X 21:00
PROVIDERS: ADMIT Psychiatry & Neurology Psychiatry; ATTEND Psychiatry & Neurology Psychiatry
DX: F20.0 Paranoid schizophrenia (principal); R45.851 Suicidal ideations; K50.90 Crohn's disease, unspecified, without complications; N39.0 Urinary tract infection, site not specified; G40.909 Epilepsy, unspecified, not intractable, without status epilepticus; K21.9 Gastro-esophageal reflux disease without esophagitis; F17.210 Nicotine dependence, cigarettes, uncomplicated; F41.9 Anxiety disorder, unspecified; F15.10 Other stimulant abuse, uncomplicated; F12.10 Cannabis abuse, uncomplicated; B19.20 Unspecified viral hepatitis C without hepatic coma; K74.60 Unspecified cirrhosis of liver; F10.10 Alcohol abuse, uncomplicated; Z88.2 Allergy status to sulfonamides; Z88.8 Allergy status to other drugs, medicaments and biological substances; Z79.899 Other long term (current) drug therapy; Z71.41 Alcohol abuse counseling and surveillance of alcoholic; Z71.51 Drug abuse counseling and surveillance of drug abuser
CPT/HCPCS: 83036; 84439; 84443; 87045; 87086; G0480

== ENCOUNTER 2018-12-16 17:12 | Inpatient (IN) | payer MEDICARE, MEDICAID ==
[~2018-12-16] VITALS: Ht 170.2 cm; Wt 76.7 kg
[~2018-12-16 17:12] MED LIST changes: -ARIP15TA2 PO; +GABA100C PO; +LACT1POW8 PO; -MIRT30 PO; +MIRT45TA59 PO; +MULT-1203 PO; +OLAN15TA2 PO; -PRAZ1 PO; -TRAZ-219 PO; +TRAZ-252 PO
[2018-12-16] MEDS ORDERED: TRAZ-252 PO (17:41)
[2018-12-16] MEDS ORDERED: OMEP20 PO (17:41)
[2018-12-16] MEDS ORDERED: OLAN2.5T3 PO (17:41)
[2018-12-16] MEDS ORDERED: MIRT15 PO (17:41)
[2018-12-16 18:13] LABS: AMPHET/METH SCREEN,URINE POSITIVE (NEGATIVE); BARBITURATE SCREEN, URINE NEGATIVE (NEGATIVE); BENZODIAZEPINES SCREEN,URINE POSITIVE (NEGATIVE); CANNABINOID SCREEN,URINE NEGATIVE (NEGATIVE); COCAINE SCREEN,URINE NEGATIVE (NEGATIVE); METHADONE SCREEN, URINE NEGATIVE (NEGATIVE); OPIATE SCREEN,URINE POSITIVE (NEGATIVE); PHENCYCLIDINE SCREEN,URINE NEGATIVE (NEGATIVE)
[2018-12-16 18:25] LABS: BASOPHILS % (AUTO) 0.6 % (0.0-2.0); EOSINOPHILS % (AUTO) 1.3 % (1.0-6.0); HEMATOCRIT 39.2 % (36-46); HEMOGLOBIN 12.8 g/dL (12.0-16.0); LYMPHOCYTES # (AUTO) 1.6 K/uL (1.0-4.8); LYMPHOCYTES % (AUTO) 22.8 % (22.0-44.0); MEAN CORPUSCULAR HEMOGLOBIN 30.6 pg (26.0-34.0); MEAN CORPUSCULAR HGB CONC 32.6 G/dL (31.0-37.0); MEAN CORPUSCULAR VOLUME 94 fL (80-100); MONOCYTES # (AUTO) 0.3 K/uL (0.1-1.0); MONOCYTES % (AUTO) 4.4 % (2.0-9.0); NEUTROPHILS # (AUTO) 5.1 K/uL (1.8-7.7); NEUTROPHILS % (AUTO) 70.9 % (40.0-70.0); PLATELET COUNT (AUTO) 254 K/uL (150-450); RED BLOOD CELL COUNT(AUTO) 4.18 MIL/uL (4.00-5.20); RED CELL DISTRIBUTION WIDTH 12.4 % (11.5-14.5)
[2018-12-16 18:32] LABS: ANION GAP 15 mmol/L (8-16); CALCIUM, TOTAL 9.4 mg/dL (8.8-10.5); CARBON DIOXIDE 23 mmol/L (22-29); CHLORIDE 104 mmol/L (98-107); CREATININE 0.81 mg/dL (0.60-1.30); GLOMERULAR FILTR. RATE CALC > 60 mL/min (>60); GLUCOSE,RANDOM 73 mg/dL (70-110); POTASSIUM 3.9 mmol/L (3.5-5.1); SODIUM SERUM 142 mmol/L (136-145); UREA NITROGEN, BLOOD 17 mg/dL (7-18)
[2018-12-16 18:37] LABS: ALANINE AMINOTRANSFERASE 31 U/L (12-78); ALBUMIN 4.2 g/dL (3.4-5.0); ALKALINE PHOSPHATASE 95 U/L (46-116); ASPARTATE AMINOTRANSFERASE 36 U/L (15-37); BILIRUBIN,TOTAL 0.9 mg/dL (0.1-1.0); TOTAL PROTEIN, SERUM 8.6 g/dL (6.4-8.2)
[2018-12-16] MEDS ORDERED: ChlordiazePOXIDE HCL 25 MG CAPSULE PO PRN (20:00)
[2018-12-16] MEDS ORDERED: HALOPERIDOL 5 MG TABLET PO PRN (20:00)
[2018-12-16 23:11] LABS: PLATELET MORPHOLOGY COMMENT GIANT PLTS PRESENT
[2018-12-16 23:13] LABS: PATHOLOGY REVIEW, DIFF YES
[2018-12-17] VITALS (11 sets, daily range): BP systolic 92–123; BP diastolic 56–82
[2018-12-17 05:58] LABS: APPEARANCE,URINE CLOUDY (CLEAR); GLUCOSE, URINE (UA) NEGATIVE (NEGATIVE); KETONES,URINE TRACE mg/dL (NEGATIVE); LEUKOCYTE ESTERASE ,URINE MODERATE (NEGATIVE); NITRATE,URINE POSITIVE (NEGATIVE); OCCULT BLOOD,URINE MODERATE (NEGATIVE); PH,URINE 5.5 (5.0-8.0); PROTEIN,URINE TRACE (NEGATIVE)
[2018-12-17 06:01] LABS: BILIRUBIN,URINE PRELIM. POSITIVE (NEGATIVE)
[2018-12-17 06:13] LABS: BACTERIA,URINE Many /HPF (None Seen); SQUAMOUS EPITHELIAL CELL,UR Many /LPF (None Seen); WBC,URINE 51-100 /HPF (0-5)
[2018-12-17 06:46] LABS: CHOL/HDL RATIO 1.8 (3.9-5.7); FREE T4 (FREE THYROXINE) 1.16 ng/dL (0.76-1.46); THYROID STIMULATING HORMONE 1.18 uIU/mL (0.36-3.74)
[2018-12-17] MEDS ORDERED: ChlordiazePOXIDE HCL 25 MG CAPSULE PO PRN (07:00)
[2018-12-17] MEDS ORDERED: CYANOCOBALAMIN 1,000 MCG/ML VIAL IM ONE (09:00)
[2018-12-17] MEDS: MULTIVITAMINS WITH MINERALS, THERAPEUTIC TABLET PO SCH (09:08)
[2018-12-17] MEDS: ChlordiazePOXIDE HCL 25 MG CAPSULE PO SCH ×4 (09:08→20:48)
[2018-12-17] MEDS: THIAMINE HCL 100 MG TABLET PO SCH ×2 (10:34→17:34)
[2018-12-17] MEDS: FOLIC ACID 1 MG TABLET PO SCH (10:34)
[2018-12-17] MEDS ORDERED: MAG HYDROX/AL HYDROX/SIMETH ES 30 ML SUSPENSION UDCUP PO PRN (11:45)
[2018-12-17] MEDS ORDERED: PETROLATUM,WHITE 28 GM JELLY TP PRN (11:45)
[2018-12-17] MEDS ORDERED: ALBUTEROL SULFATE HFA 90 MCG/PUFF 8 GM INHALER IH PRN (11:45)
[2018-12-17] MEDS ORDERED: ACETAMINOPHEN 325 MG TABLET PO PRN (11:45)
[2018-12-17] MEDS ORDERED: CloNIDine HCL 0.1 MG TABLET PO PRN (11:45)
[2018-12-17] MEDS ORDERED: DOCUSATE SODIUM 100 MG CAPSULE PO PRN (11:45)
[2018-12-17] MEDS ORDERED: IBUPROFEN 400 MG TABLET PO PRN (11:45)
[2018-12-17] MEDS ORDERED: MAGNESIUM HYDROXIDE SUSPENSION 30 ML UDCUP PO PRN (11:45)
[2018-12-17] MEDS ORDERED: ONDANSETRON HCL 4 MG TABLET PO PRN (11:45)
[2018-12-17] MEDS ORDERED: GuaiFENesin/D-METHORPHAN [SUGAR-FREE] 200-20MG/10 ML SYRUP UDCUP PO PRN (11:45)
[2018-12-17] MEDS: LOPERAMIDE HCL 2 MG CAPSULE PO PRN (13:11)
[2018-12-17] MEDS: CEPHALEXIN MONOHYDRATE 500 MG CAPSULE PO SCH (17:34)
[2018-12-18 00:15] VITALS: BP 101/65
[2018-12-18] MEDS: CEPHALEXIN MONOHYDRATE 500 MG CAPSULE PO SCH ×3 (00:22→16:30)
[2018-12-18 04:15] VITALS: BP 99/51
[2018-12-18] MEDS: ChlordiazePOXIDE HCL 25 MG CAPSULE PO SCH ×4 (09:00→20:07)
[2018-12-18 09:04] VITALS: BP 94/65
[2018-12-18] MEDS: ARIPiprazole 10 MG TABLET PO SCH (09:19)
[2018-12-18] MEDS: FOLIC ACID 1 MG TABLET PO SCH (09:19)
[2018-12-18] MEDS: OMEPRAZOLE 20 MG CAPSULE PO SCH (09:20)
[2018-12-18] MEDS: MULTIVITAMINS WITH MINERALS, THERAPEUTIC TABLET PO SCH (09:20)
[2018-12-18] MEDS: THIAMINE HCL 100 MG TABLET PO SCH ×2 (09:21→16:30)
[2018-12-18] MEDS: LOPERAMIDE HCL 2 MG CAPSULE PO PRN ×2 (09:29→16:33)
[2018-12-18] MEDS: METHYL SALICYLATE/MENTHOL 85 GM CREAM TP PRN ×2 (09:32→16:30)
[2018-12-18] MEDS: NICOTINE 14 MG/24 HOUR PATCH TD PRN (09:32)
[2018-12-18 16:18] VITALS: BP 107/58
[2018-12-18 16:19] VITALS: BP 107/58
[2018-12-18 20:07] VITALS: BP 106/67
[2018-12-18] MEDS: ZOLPIDEM TARTRATE 10 MG TABLET PO PRN (23:54)
[2018-12-19 04:53] VITALS: BP 105/87
[2018-12-19] MEDS ORDERED: ChlordiazePOXIDE HCL 10 MG CAPSULE PO PRN (07:00)
[2018-12-19 08:00] VITALS: BP 102/84
[2018-12-19] MEDS: OMEPRAZOLE 20 MG CAPSULE PO SCH (08:13)
[2018-12-19] MEDS: FOLIC ACID 1 MG TABLET PO SCH (08:13)
[2018-12-19] MEDS: CEPHALEXIN MONOHYDRATE 500 MG CAPSULE PO SCH ×3 (08:13→16:46)
[2018-12-19] MEDS: LOPERAMIDE HCL 2 MG CAPSULE PO PRN ×2 (08:13→19:43)
[2018-12-19] MEDS: ARIPiprazole 10 MG TABLET PO SCH (08:13)
[2018-12-19] MEDS: THIAMINE HCL 100 MG TABLET PO SCH ×2 (08:13→16:46)
[2018-12-19] MEDS: MULTIVITAMINS WITH MINERALS, THERAPEUTIC TABLET PO SCH (08:13)
[2018-12-19] MEDS: NICOTINE 14 MG/24 HOUR PATCH TD PRN (08:14)
[2018-12-19] MEDS: ChlordiazePOXIDE HCL 10 MG CAPSULE PO SCH ×4 (09:00→19:41)
[2018-12-19 10:07] VITALS: BP 124/86
[2018-12-19] MEDS: METHYL SALICYLATE/MENTHOL 85 GM CREAM TP PRN (10:21)
[2018-12-19 17:29] VITALS: BP 106/69
[2018-12-19 17:30] VITALS: BP 106/69
[2018-12-19] MEDS: AMOX TR/POT CLAV 250 MG/125 MG TABLET PO SCH (19:43)
[2018-12-20] MEDS: CEPHALEXIN MONOHYDRATE 500 MG CAPSULE PO SCH ×3 (00:16→16:31)
[2018-12-20 00:20] VITALS: BP 94/57
[2018-12-20] MEDS: ZOLPIDEM TARTRATE 10 MG TABLET PO PRN ×2 (02:05→23:02)
[2018-12-20] MEDS ORDERED: ChlordiazePOXIDE HCL 10 MG CAPSULE PO PRN (07:00)
[2018-12-20 08:00] VITALS: BP 118/63
[2018-12-20] MEDS: ARIPiprazole 10 MG TABLET PO SCH (08:11)
[2018-12-20] MEDS: MULTIVITAMINS WITH MINERALS, THERAPEUTIC TABLET PO SCH (08:11)
[2018-12-20] MEDS: THIAMINE HCL 100 MG TABLET PO SCH ×2 (08:11→16:31)
[2018-12-20] MEDS: OMEPRAZOLE 20 MG CAPSULE PO SCH (08:13)
[2018-12-20] MEDS: AMOX TR/POT CLAV 250 MG/125 MG TABLET PO SCH ×2 (08:13→21:16)
[2018-12-20] MEDS: FOLIC ACID 1 MG TABLET PO SCH (08:13)
[2018-12-20] MEDS: METHYL SALICYLATE/MENTHOL 85 GM CREAM TP PRN (10:17)
[2018-12-20] MEDS: LOPERAMIDE HCL 2 MG CAPSULE PO PRN ×3 (10:18→20:36)
[2018-12-20 17:20] VITALS: BP 119/76
[2018-12-20 17:21] VITALS: BP 119/76
[2018-12-21] MEDS: CEPHALEXIN MONOHYDRATE 500 MG CAPSULE PO SCH ×3 (00:03→16:28)
[2018-12-21 00:42] VITALS: BP 90/56
[2018-12-21] MEDS: MULTIVITAMINS WITH MINERALS, THERAPEUTIC TABLET PO SCH (09:25)
[2018-12-21] MEDS: FOLIC ACID 1 MG TABLET PO SCH (09:25)
[2018-12-21] MEDS: THIAMINE HCL 100 MG TABLET PO SCH ×2 (09:25→16:28)
[2018-12-21] MEDS: OMEPRAZOLE 20 MG CAPSULE PO SCH (09:25)
[2018-12-21] MEDS: ARIPiprazole 10 MG TABLET PO SCH (09:25)
[2018-12-21] MEDS: AMOX TR/POT CLAV 250 MG/125 MG TABLET PO SCH ×2 (09:26→20:22)
[2018-12-21 10:30] VITALS: BP 91/96
[2018-12-21 10:31] VITALS: BP 115/61
[2018-12-21] MEDS: LOPERAMIDE HCL 2 MG CAPSULE PO PRN ×2 (10:56→16:29)
[2018-12-21] MEDS: METHYL SALICYLATE/MENTHOL 85 GM CREAM TP PRN (10:58)
[2018-12-21 16:45] VITALS: BP 120/68
[2018-12-21] MEDS: ZOLPIDEM TARTRATE 10 MG TABLET PO PRN (20:22)
[2018-12-22 03:25] VITALS: BP 98/63
[2018-12-22] MEDS: MULTIVITAMINS WITH MINERALS, THERAPEUTIC TABLET PO SCH (08:12)
[2018-12-22] MEDS: FOLIC ACID 1 MG TABLET PO SCH (08:12)
[2018-12-22] MEDS: AMOX TR/POT CLAV 250 MG/125 MG TABLET PO SCH ×2 (08:12→20:06)
[2018-12-22] MEDS: CEPHALEXIN MONOHYDRATE 500 MG CAPSULE PO SCH ×2 (08:12)
[2018-12-22] MEDS: OMEPRAZOLE 20 MG CAPSULE PO SCH (08:12)
[2018-12-22] MEDS: THIAMINE HCL 100 MG TABLET PO SCH ×2 (08:12→16:23)
[2018-12-22] MEDS: ARIPiprazole 10 MG TABLET PO SCH (08:12)
[2018-12-22] MEDS: NICOTINE 14 MG/24 HOUR PATCH TD PRN (08:15)
[2018-12-22 09:13] VITALS: BP 97/65
[2018-12-22 16:21] VITALS: BP 100/62
[2018-12-22] MEDS: LOPERAMIDE HCL 2 MG CAPSULE PO PRN (17:05)
[2018-12-23 01:30] VITALS: BP 104/69
[2018-12-23] MEDS: ZOLPIDEM TARTRATE 10 MG TABLET PO PRN (01:31)
[2018-12-23] MEDS: THIAMINE HCL 100 MG TABLET PO SCH ×2 (08:15→16:27)
[2018-12-23] MEDS: MULTIVITAMINS WITH MINERALS, THERAPEUTIC TABLET PO SCH (08:15)
[2018-12-23] MEDS: ARIPiprazole 10 MG TABLET PO SCH (08:15)
[2018-12-23] MEDS: OMEPRAZOLE 20 MG CAPSULE PO SCH (08:15)
[2018-12-23] MEDS: FOLIC ACID 1 MG TABLET PO SCH (08:15)
[2018-12-23 09:06] VITALS: BP 105/67
[2018-12-23] MEDS: NICOTINE 14 MG/24 HOUR PATCH TD PRN (09:09)
[2018-12-23 19:37] VITALS: BP 104/65
[2018-12-24 02:22] VITALS: BP 114/73
[2018-12-24] MEDS: ZOLPIDEM TARTRATE 10 MG TABLET PO PRN (02:25)
[2018-12-24] MEDS ORDERED: ARIP10TA8 PO (08:11)
[2018-12-24] MEDS ORDERED: THIA100T67 PO (08:12)
[2018-12-24] MEDS ORDERED: FOLI1 PO (08:13)
[2018-12-24] MEDS: ARIPiprazole 10 MG TABLET PO SCH (08:22)
[2018-12-24] MEDS: MULTIVITAMINS WITH MINERALS, THERAPEUTIC TABLET PO SCH (08:22)
[2018-12-24] MEDS: FOLIC ACID 1 MG TABLET PO SCH (08:22)
[2018-12-24] MEDS: OMEPRAZOLE 20 MG CAPSULE PO SCH (08:22)
[2018-12-24] MEDS: THIAMINE HCL 100 MG TABLET PO SCH (08:23)
[2018-12-24 08:57] VITALS: BP 101/78
== END 2018-12-24 14:40 | disposition home or self-care (01) | DRG 885 ==
LOC: EMS 17:13 → 3EX 12-17 00:01
DX: F25.1 Schizoaffective disorder, depressive type (principal); K50.90 Crohn's disease, unspecified, without complications; R45.851 Suicidal ideations; N39.0 Urinary tract infection, site not specified; F15.10 Other stimulant abuse, uncomplicated; G40.909 Epilepsy, unspecified, not intractable, without status epilepticus; B19.20 Unspecified viral hepatitis C without hepatic coma; M54.9 Dorsalgia, unspecified; R45.87 Impulsiveness; F17.210 Nicotine dependence, cigarettes, uncomplicated; K21.9 Gastro-esophageal reflux disease without esophagitis; G89.29 Other chronic pain; Y90.1 Blood alcohol level of 20-39 mg/100 ml; Z59.0 Homelessness; Z72.89 Other problems related to lifestyle; Z79.899 Other long term (current) drug therapy
CPT/HCPCS: 84439; 84443; 87086; G0378; G0480; J3420

== ENCOUNTER 2019-07-03 11:49 | Inpatient (IN) | payer MEDICARE, MEDICAID ==
[~2019-07-03] VITALS: Ht 167.6 cm; Wt 81.2 kg
[~2019-07-03 11:49] MED LIST changes: +ARIP10TA8 PO; +FOLI1 PO; -GABA100C PO; -LACT1POW8 PO; -MIRT45TA59 PO; -OLAN15TA2 PO; +OMEP20 PO; +THIA100T67 PO; -TRAZ-252 PO
[2019-07-03] MEDS ORDERED: KETOROLAC TROMETHAMINE 30 MG/ML VIAL IM ONE (13:45)
[2019-07-03 14:39] LABS: BASOPHILS % (AUTO) 0.6 % (0.0-2.0); EOSINOPHILS % (AUTO) 0.7 % (1.0-6.0); LYMPHOCYTES # (AUTO) 1.8 K/uL (1.0-4.8); MEAN CORPUSCULAR HGB CONC 33.4 G/dL (31.0-37.0); MEAN CORPUSCULAR VOLUME 90 fL (80-100); MONOCYTES # (AUTO) 0.4 K/uL (0.1-1.0); MONOCYTES % (AUTO) 5.8 % (2.0-9.0); NEUTROPHILS # (AUTO) 5.4 K/uL (1.8-7.7); NEUTROPHILS % (AUTO) 69.9 % (40.0-70.0); PLATELET COUNT (AUTO) 218 K/uL (150-450); RED BLOOD CELL COUNT(AUTO) 4.66 MIL/uL (4.00-5.20); RED CELL DISTRIBUTION WIDTH 13.1 % (11.5-14.5)
[2019-07-03 14:40] LABS: ALANINE AMINOTRANSFERASE 23 U/L (12-78); ALKALINE PHOSPHATASE 111 U/L (46-116); ANION GAP 11 mmol/L (8-16); ASPARTATE AMINOTRANSFERASE 16 U/L (15-37); BILIRUBIN,TOTAL 0.5 mg/dL (0.1-1.0); CARBON DIOXIDE 26 mmol/L (22-29); CHLORIDE 105 mmol/L (98-107); CREATININE 0.54 mg/dL (0.60-1.30); GLOMERULAR FILTR. RATE CALC > 60 mL/min (>60); GLUCOSE,RANDOM 86 mg/dL (70-110); POTASSIUM 3.7 mmol/L (3.5-5.1); SODIUM SERUM 142 mmol/L (136-145); TOTAL PROTEIN, SERUM 8.5 g/dL (6.4-8.2); UREA NITROGEN, BLOOD 16 mg/dL (7-18)
[2019-07-03 17:33] LABS: AMPHET/METH SCREEN,URINE POSITIVE (NEGATIVE); BARBITURATE SCREEN, URINE NEGATIVE (NEGATIVE); BENZODIAZEPINES SCREEN,URINE NEGATIVE (NEGATIVE); CANNABINOID SCREEN,URINE NEGATIVE (NEGATIVE); COCAINE SCREEN,URINE NEGATIVE (NEGATIVE); METHADONE SCREEN, URINE NEGATIVE (NEGATIVE); OPIATE SCREEN,URINE NEGATIVE (NEGATIVE)
[2019-07-03 17:34] LABS: PHENCYCLIDINE SCREEN,URINE NEGATIVE (NEGATIVE)
[2019-07-03] MEDS ORDERED: LOPERAMIDE HCL 2 MG CAPSULE PO ONE (18:45)
[2019-07-03] MEDS: ZOLPIDEM TARTRATE 10 MG TABLET PO PRN (18:47)
[2019-07-03] MEDS: LORazepam 2 MG TABLET PO PRN (18:47)
[2019-07-03] MEDS: HALOPERIDOL 5 MG TABLET PO PRN (18:47)
[2019-07-03] MEDS ORDERED: INFLUENZA VIRUS VACCINE QVS 2019-20 (3YR+)/PF 60 MCG/0.5 ML SYRINGE IM ONE (21:45)
[2019-07-03 22:02] VITALS: BP 103/69
[2019-07-04 02:41] VITALS: BP 101/60
[2019-07-04] MEDS ORDERED: ACETAMINOPHEN 325 MG TABLET PO PRN (06:00)
[2019-07-04] MEDS ORDERED: BENZOCAINE/MENTHOL LOZENGE MM PRN (06:00)
[2019-07-04] MEDS ORDERED: PETROLATUM,WHITE 28 GM JELLY TP PRN (06:00)
[2019-07-04] MEDS ORDERED: ONDANSETRON HCL 4 MG TABLET PO PRN (06:00)
[2019-07-04] MEDS ORDERED: CloNIDine HCL 0.1 MG TABLET PO PRN (06:00)
[2019-07-04] MEDS ORDERED: OMEPRAZOLE 20 MG CAPSULE PO PRN (06:00)
[2019-07-04] MEDS ORDERED: MAG HYDROX/AL HYDROX/SIMETH ES 30 ML SUSPENSION UDCUP PO PRN (06:00)
[2019-07-04] MEDS ORDERED: BACITRACIN 28.4 GM OINTMENT TP PRN (06:00)
[2019-07-04] MEDS ORDERED: MAGNESIUM HYDROXIDE SUSPENSION 30 ML UDCUP PO PRN (06:00)
[2019-07-04] MEDS ORDERED: ALBUTEROL SULFATE HFA 90 MCG/PUFF 8 GM INHALER IH PRN (06:00)
[2019-07-04] MEDS ORDERED: DOCUSATE SODIUM 100 MG CAPSULE PO PRN (06:00)
[2019-07-04] MEDS: OMEPRAZOLE 20 MG CAPSULE PO SCH (06:49)
[2019-07-04 08:20] LABS: CHOL/HDL RATIO 2.1 (3.9-5.7); FREE T4 (FREE THYROXINE) 1.02 ng/dL (0.76-1.46); THYROID STIMULATING HORMONE 1.42 uIU/mL (0.36-3.74)
[2019-07-04 08:24] LABS: HEMOGLOBIN A1C 5.2 % (3.8-5.6)
[2019-07-04 08:49] VITALS: BP 113/60
[2019-07-04] MEDS: ARIPiprazole 10 MG TABLET PO SCH (09:06)
[2019-07-04] MEDS: LOPERAMIDE HCL 2 MG CAPSULE PO PRN (13:30)
[2019-07-04 13:57] VITALS: BP 110/65
[2019-07-04] MEDS: IBUPROFEN 600 MG TABLET PO PRN (13:57)
[2019-07-04] MEDS: LORazepam 2 MG TABLET PO PRN (18:26)
[2019-07-04 19:03] VITALS: BP 105/63
[2019-07-04] MEDS: HALOPERIDOL 5 MG TABLET PO PRN (20:09)
[2019-07-05 03:41] VITALS: BP 115/62
[2019-07-05] MEDS: ZOLPIDEM TARTRATE 10 MG TABLET PO PRN (03:51)
[2019-07-05] MEDS: LORazepam 2 MG TABLET PO PRN ×2 (03:51→20:26)
[2019-07-05] MEDS: OMEPRAZOLE 20 MG CAPSULE PO SCH (06:27)
[2019-07-05 08:21] VITALS: BP 92/55
[2019-07-05] MEDS: ARIPiprazole 10 MG TABLET PO SCH (08:54)
[2019-07-05 16:30] VITALS: BP 102/68
[2019-07-06] MEDS: IBUPROFEN 600 MG TABLET PO PRN (05:19)
[2019-07-06 05:20] VITALS: BP 124/78
[2019-07-06] MEDS: OMEPRAZOLE 20 MG CAPSULE PO SCH (06:46)
[2019-07-06] MEDS: ARIPiprazole 10 MG TABLET PO SCH (08:18)
[2019-07-06 08:26] VITALS: BP 113/77
[2019-07-06 16:28] VITALS: BP 111/67
[2019-07-06] MEDS: LORazepam 2 MG TABLET PO PRN (18:30)
[2019-07-06] MEDS: ZOLPIDEM TARTRATE 10 MG TABLET PO PRN (20:33)
[2019-07-07] MEDS: OMEPRAZOLE 20 MG CAPSULE PO SCH (06:48)
[2019-07-07 06:54] VITALS: BP 136/76
[2019-07-07 08:00] VITALS: BP 100/65
[2019-07-07] MEDS: ARIPiprazole 10 MG TABLET PO SCH (10:08)
[2019-07-07] MEDS: LOPERAMIDE HCL 2 MG CAPSULE PO PRN (10:09)
[2019-07-07] MEDS: IBUPROFEN 600 MG TABLET PO PRN (13:46)
[2019-07-07 16:22] VITALS: BP 104/68
[2019-07-07] MEDS: LORazepam 2 MG TABLET PO PRN (17:26)
[2019-07-08 05:00] VITALS: BP 102/66
[2019-07-08] MEDS: OMEPRAZOLE 20 MG CAPSULE PO SCH (06:46)
[2019-07-08 09:04] VITALS: BP 118/74
[2019-07-08] MEDS: ARIPiprazole 10 MG TABLET PO SCH (09:25)
[2019-07-08 16:40] VITALS: BP 111/70
[2019-07-08] MEDS: LORazepam 2 MG TABLET PO PRN (16:54)
[2019-07-08] MEDS: ZOLPIDEM TARTRATE 10 MG TABLET PO PRN (23:09)
[2019-07-09 01:21] VITALS: BP 108/62
[2019-07-09] MEDS: OMEPRAZOLE 20 MG CAPSULE PO SCH (06:18)
[2019-07-09 06:40] VITALS: BP 108/76
[2019-07-09] MEDS: IBUPROFEN 600 MG TABLET PO PRN ×2 (06:43→19:24)
[2019-07-09 08:38] VITALS: BP 109/66
[2019-07-09] MEDS: ARIPiprazole 10 MG TABLET PO SCH (09:12)
[2019-07-09] MEDS: LORazepam 2 MG TABLET PO PRN (14:38)
[2019-07-09 14:41] VITALS: BP 106/58
[2019-07-09 16:39] VITALS: BP 136/81
[2019-07-09] MEDS: HALOPERIDOL 5 MG TABLET PO PRN (20:12)
[2019-07-09] MEDS: ZOLPIDEM TARTRATE 10 MG TABLET PO PRN (21:07)
[2019-07-10 05:28] VITALS: BP 110/69
[2019-07-10 06:43] VITALS: BP 112/68
[2019-07-10] MEDS: OMEPRAZOLE 20 MG CAPSULE PO SCH (06:44)
[2019-07-10] MEDS: LORazepam 2 MG TABLET PO PRN (06:44)
[2019-07-10 08:46] VITALS: BP 95/65
[2019-07-10] MEDS: ARIPiprazole 10 MG TABLET PO SCH (08:49)
[2019-07-10] MEDS: LOPERAMIDE HCL 2 MG CAPSULE PO PRN (13:25)
[2019-07-10 16:18] VITALS: BP 106/60
[2019-07-10 17:58] VITALS: BP 109/72
[2019-07-10] MEDS: IBUPROFEN 600 MG TABLET PO PRN (18:00)
[2019-07-10 20:58] VITALS: BP 105/67
[2019-07-10] MEDS: ZOLPIDEM TARTRATE 10 MG TABLET PO PRN (21:03)
[2019-07-11 02:04] VITALS: BP 104/64
[2019-07-11] MEDS: LORazepam 2 MG TABLET PO PRN ×2 (02:17→14:13)
[2019-07-11] MEDS: OMEPRAZOLE 20 MG CAPSULE PO SCH (06:27)
[2019-07-11] MEDS: ARIPiprazole 10 MG TABLET PO SCH (08:37)
[2019-07-11] MEDS: MULTIVITAMINS WITH MINERALS, THERAPEUTIC TABLET PO SCH (08:38)
[2019-07-11 08:49] VITALS: BP 100/71
[2019-07-11 16:28] VITALS: BP 114/73
[2019-07-11] MEDS: ZOLPIDEM TARTRATE 10 MG TABLET PO PRN (20:46)
[2019-07-12 05:48] VITALS: BP 107/65
[2019-07-12] MEDS: OMEPRAZOLE 20 MG CAPSULE PO SCH (06:44)
[2019-07-12] MEDS: ARIPiprazole 10 MG TABLET PO SCH (08:24)
[2019-07-12] MEDS: MULTIVITAMINS WITH MINERALS, THERAPEUTIC TABLET PO SCH (08:24)
[2019-07-12 08:47] VITALS: BP 104/67
[2019-07-12 16:45] VITALS: BP 103/63
[2019-07-12] MEDS: ZOLPIDEM TARTRATE 10 MG TABLET PO PRN (21:12)
[2019-07-13 04:02] VITALS: BP 106/67
[2019-07-13] MEDS: HALOPERIDOL 5 MG TABLET PO PRN ×2 (04:04→23:37)
[2019-07-13] MEDS: OMEPRAZOLE 20 MG CAPSULE PO SCH (06:11)
[2019-07-13 08:12] VITALS: BP 103/67
[2019-07-13] MEDS: ARIPiprazole 10 MG TABLET PO SCH (08:57)
[2019-07-13] MEDS: LOPERAMIDE HCL 2 MG CAPSULE PO PRN (08:57)
[2019-07-13] MEDS: MULTIVITAMINS WITH MINERALS, THERAPEUTIC TABLET PO SCH (08:57)
[2019-07-13] MEDS: LORazepam 2 MG TABLET PO PRN (13:25)
[2019-07-13 16:07] VITALS: BP 122/74
[2019-07-13 16:08] VITALS: BP 122/74
[2019-07-14] MEDS: ZOLPIDEM TARTRATE 10 MG TABLET PO PRN (00:11)
[2019-07-14 00:16] VITALS: BP 103/61
[2019-07-14] MEDS: OMEPRAZOLE 20 MG CAPSULE PO SCH (06:42)
[2019-07-14 08:51] VITALS: BP 101/61
[2019-07-14] MEDS: MULTIVITAMINS WITH MINERALS, THERAPEUTIC TABLET PO SCH (09:00)
[2019-07-14] MEDS: LOPERAMIDE HCL 2 MG CAPSULE PO PRN (09:31)
[2019-07-14] MEDS: ARIPiprazole 10 MG TABLET PO SCH (09:31)
[2019-07-14] MEDS: LORazepam 2 MG TABLET PO PRN (12:21)
[2019-07-14 16:09] VITALS: BP 107/61
[2019-07-14] MEDS: HALOPERIDOL 5 MG TABLET PO PRN (20:04)
[2019-07-15 01:53] VITALS: BP 100/68
[2019-07-15] MEDS: OMEPRAZOLE 20 MG CAPSULE PO SCH (06:30)
[2019-07-15 08:08] VITALS: BP 113/74
[2019-07-15] MEDS ORDERED: OMEP20 PO (08:36)
[2019-07-15] MEDS ORDERED: MULT-723 PO (08:36)
[2019-07-15] MEDS: LOPERAMIDE HCL 2 MG CAPSULE PO PRN (09:18)
[2019-07-15] MEDS: ARIPiprazole 10 MG TABLET PO SCH (09:18)
[2019-07-15] MEDS: MULTIVITAMINS WITH MINERALS, THERAPEUTIC TABLET PO SCH (09:18)
[2019-07-15] MEDS: LORazepam 2 MG TABLET PO PRN (10:15)
[2019-07-15] MEDS: IBUPROFEN 600 MG TABLET PO PRN (16:19)
== END 2019-07-15 16:50 | disposition home or self-care (01) | DRG 885 ==
LOC: EMS 11:55 → B2X 16:07
PROVIDERS: ADMIT Psychiatry & Neurology Psychiatry; ATTEND Psychiatry & Neurology Psychiatry
DX: F25.9 Schizoaffective disorder, unspecified (principal); B19.20 Unspecified viral hepatitis C without hepatic coma; K50.90 Crohn's disease, unspecified, without complications; R45.851 Suicidal ideations; F41.9 Anxiety disorder, unspecified; G40.909 Epilepsy, unspecified, not intractable, without status epilepticus
CPT/HCPCS: 83036; 84439; 84443; 87081; G0480; J1885

== ENCOUNTER 2019-11-08 13:36 | Inpatient (IN) | payer MEDICARE, MEDICAID ==
[~2019-11-08] VITALS: Ht 170.2 cm; Wt 73.1 kg
[~2019-11-08 13:36] MED LIST changes: -FOLI1 PO; -MULT-1203 PO; +MULT-723 PO; -THIA100T67 PO
[2019-11-08] MEDS ORDERED: PRAZ1 PO (17:01)
[2019-11-08] MEDS ORDERED: MIRT-89 PO (17:01)
[2019-11-08] MEDS ORDERED: DULO30CA2 PO (17:01)
[2019-11-08] MEDS ORDERED: OLAN5TAB2 PO (17:01)
[2019-11-08] MEDS ORDERED: HYDR-4031 PO (17:01)
[2019-11-08] MEDS ORDERED: TRAZ150 PO (17:01)
[2019-11-08] MEDS ORDERED: GABA-1181 PO (17:01)
[2019-11-08] MEDS ORDERED: LORazepam 2 MG TABLET PO ONE (18:00)
[2019-11-08 18:28] LABS: BASOPHILS % (AUTO) 0.6 % (0.0-2.0); EOSINOPHILS % (AUTO) 0.1 % (1.0-6.0); HEMATOCRIT 43.1 % (36-46); HEMOGLOBIN 14.6 g/dL (12.0-16.0); LYMPHOCYTES # (AUTO) 1.3 K/uL (1.0-4.8); MEAN CORPUSCULAR HEMOGLOBIN 30.7 pg (26.0-34.0); MEAN CORPUSCULAR HGB CONC 33.9 G/dL (31.0-37.0); MEAN CORPUSCULAR VOLUME 91 fL (80-100); MONOCYTES # (AUTO) 0.4 K/uL (0.1-1.0); MONOCYTES % (AUTO) 6.9 % (2.0-9.0); NEUTROPHILS # (AUTO) 4.1 K/uL (1.8-7.7); NEUTROPHILS % (AUTO) 70.4 % (40.0-70.0); PLATELET COUNT (AUTO) 155 K/uL (150-450); RED BLOOD CELL COUNT(AUTO) 4.75 MIL/uL (4.00-5.20); RED CELL DISTRIBUTION WIDTH 14.1 % (11.5-14.5)
[2019-11-08] MEDS ORDERED: LOPERAMIDE HCL 2 MG CAPSULE PO PRN (18:30)
[2019-11-08] MEDS ORDERED: LORazepam 2 MG TABLET PO PRN (18:30)
[2019-11-08] MEDS ORDERED: HydrOXYzine PAMOATE 50 MG CAPSULE PO PRN (18:30)
[2019-11-08] MEDS ORDERED: CYANOCOBALAMIN 1,000 MCG/ML VIAL IM ONE (18:30)
[2019-11-08] MEDS ORDERED: GuaiFENesin/D-METHORPHAN [SUGAR-FREE] 200-20MG/10 ML SYRUP UDCUP PO PRN (18:30)
[2019-11-08 18:45] LABS: ANION GAP 15 mmol/L (8-16); CALCIUM, TOTAL 9.3 mg/dL (8.8-10.5); CARBON DIOXIDE 24 mmol/L (22-29); CHLORIDE 102 mmol/L (98-107); GLOMERULAR FILTR. RATE CALC > 60 mL/min (>60); GLUCOSE,RANDOM 134 mg/dL (70-110); POTASSIUM 3.8 mmol/L (3.5-5.1); SODIUM SERUM 141 mmol/L (136-145); UREA NITROGEN, BLOOD 19 mg/dL (7-18)
[2019-11-08 18:51] LABS: ALANINE AMINOTRANSFERASE 164 U/L (12-78); ALBUMIN 4.4 g/dL (3.4-5.0); ALKALINE PHOSPHATASE 162 U/L (46-116); ASPARTATE AMINOTRANSFERASE 93 U/L (15-37); BILIRUBIN,TOTAL 0.9 mg/dL (0.1-1.0); TOTAL PROTEIN, SERUM 9.2 g/dL (6.4-8.2)
[2019-11-08 21:35] VITALS: BP 107/61
[2019-11-08] MEDS: THIAMINE 100 MG TABLET PO SCH (21:53)
[2019-11-08 22:35] VITALS: BP 104/75
[2019-11-08] MEDS ORDERED: PNEUMOCOCCAL VACCINE POLYVALENT 0.5 ML VIAL [PPSV23] IM ONE (23:00)
[2019-11-08 23:24] VITALS: BP 107/61
[2019-11-08 23:35] VITALS: BP 102/69
[2019-11-09] VITALS (9 sets, daily range): BP systolic 93–112; BP diastolic 63–80
[2019-11-09] MEDS ORDERED: LORazepam 2 MG TABLET PO PRN (07:00)
[2019-11-09] MEDS ORDERED: ALBUTEROL SULFATE HFA 90 MCG/PUFF 8 GM INHALER IH PRN (08:15)
[2019-11-09] MEDS ORDERED: ACETAMINOPHEN 325 MG TABLET PO PRN (08:15)
[2019-11-09] MEDS ORDERED: IBUPROFEN 400 MG TABLET PO PRN (08:15)
[2019-11-09] MEDS ORDERED: MAGNESIUM HYDROXIDE SUSPENSION 30 ML UDCUP PO PRN (08:15)
[2019-11-09] MEDS ORDERED: DOCUSATE SODIUM 100 MG CAPSULE PO PRN (08:15)
[2019-11-09] MEDS ORDERED: ONDANSETRON HCL 4 MG TABLET PO PRN (08:15)
[2019-11-09] MEDS ORDERED: PETROLATUM,WHITE 28 GM JELLY TP PRN (08:15)
[2019-11-09] MEDS ORDERED: CloNIDine HCL 0.1 MG TABLET PO PRN (08:15)
[2019-11-09] MEDS ORDERED: GuaiFENesin/D-METHORPHAN [SUGAR-FREE] 200-20MG/10 ML SYRUP UDCUP PO PRN (08:15)
[2019-11-09] MEDS ORDERED: NICOTINE 14 MG/24 HOUR PATCH TD PRN (08:15)
[2019-11-09] MEDS: LORazepam 2 MG TABLET PO SCH ×4 (09:45→21:04)
[2019-11-09] MEDS: OMEPRAZOLE 20 MG CAPSULE PO SCH (09:46)
[2019-11-09] MEDS: THIAMINE 100 MG TABLET PO SCH ×2 (09:47→17:25)
[2019-11-09] MEDS: MULTIVITAMINS WITH MINERALS, THERAPEUTIC TABLET PO SCH (09:48)
[2019-11-09] MEDS: FOLIC ACID 1 MG TABLET PO SCH (09:50)
[2019-11-09] MEDS: MAG HYDROX/AL HYDROX/SIMETH ES 30 ML SUSPENSION UDCUP PO PRN (13:02)
[2019-11-10] VITALS: BP 101/71
[2019-11-10 06:38] VITALS: BP 101/71
[2019-11-10 08:57] VITALS: BP 100/70
[2019-11-10 08:58] VITALS: BP 100/70
[2019-11-10] MEDS: MULTIVITAMINS WITH MINERALS, THERAPEUTIC TABLET PO SCH (09:37)
[2019-11-10] MEDS: LORazepam 2 MG TABLET PO SCH ×4 (09:37→20:30)
[2019-11-10] MEDS: FOLIC ACID 1 MG TABLET PO SCH (09:37)
[2019-11-10] MEDS: OMEPRAZOLE 20 MG CAPSULE PO SCH (09:37)
[2019-11-10] MEDS: THIAMINE 100 MG TABLET PO SCH ×2 (09:37→16:46)
[2019-11-10 17:43] VITALS: BP 128/75
[2019-11-10] MEDS: MAG HYDROX/AL HYDROX/SIMETH ES 30 ML SUSPENSION UDCUP PO PRN (21:54)
[2019-11-11 06:42] VITALS: BP 118/81
[2019-11-11] MEDS ORDERED: LORazepam 1 MG TABLET PO PRN (07:00)
[2019-11-11 08:45] VITALS: BP 121/82
[2019-11-11] MEDS: FOLIC ACID 1 MG TABLET PO SCH (09:10)
[2019-11-11] MEDS: OMEPRAZOLE 20 MG CAPSULE PO SCH (09:10)
[2019-11-11] MEDS: MULTIVITAMINS WITH MINERALS, THERAPEUTIC TABLET PO SCH (09:10)
[2019-11-11] MEDS: LORazepam 1 MG TABLET PO SCH ×4 (09:11→21:11)
[2019-11-11] MEDS: THIAMINE 100 MG TABLET PO SCH ×2 (09:11→16:43)
[2019-11-11] MEDS: MAG HYDROX/AL HYDROX/SIMETH ES 30 ML SUSPENSION UDCUP PO PRN (13:52)
[2019-11-11] MEDS: OLANZapine 5 MG TABLET PO SCH (16:42)
[2019-11-11 16:55] VITALS: BP 107/68
[2019-11-11] MEDS: MIRTAZAPINE 15 MG TABLET PO SCH (21:11)
[2019-11-12] VITALS (14 sets, daily range): BP systolic 110–136; BP diastolic 66–89
[2019-11-12] MEDS: LOPERAMIDE HCL 2 MG CAPSULE PO PRN (02:50)
[2019-11-12] MEDS ORDERED: LORazepam 1 MG TABLET PO PRN (07:00)
[2019-11-12] MEDS: OLANZapine 5 MG TABLET PO SCH ×2 (09:06→17:18)
[2019-11-12] MEDS: OMEPRAZOLE 20 MG CAPSULE PO SCH (09:06)
[2019-11-12] MEDS: MULTIVITAMINS WITH MINERALS, THERAPEUTIC TABLET PO SCH (09:06)
[2019-11-12] MEDS: THIAMINE 100 MG TABLET PO SCH ×2 (09:06→17:19)
[2019-11-12] MEDS: FOLIC ACID 1 MG TABLET PO SCH (09:06)
[2019-11-12] MEDS: MIRTAZAPINE 15 MG TABLET PO SCH (20:55)
[2019-11-13 00:13] VITALS: BP 101/70
[2019-11-13 03:35] VITALS: BP 101/70
[2019-11-13 03:45] VITALS: BP 101/70
[2019-11-13 08:12] VITALS: BP 103/72
[2019-11-13] MEDS: FOLIC ACID 1 MG TABLET PO SCH (08:43)
[2019-11-13] MEDS: OLANZapine 5 MG TABLET PO SCH ×2 (08:43→16:38)
[2019-11-13] MEDS: THIAMINE 100 MG TABLET PO SCH ×2 (08:44→16:39)
[2019-11-13] MEDS: OMEPRAZOLE 20 MG CAPSULE PO SCH (08:44)
[2019-11-13] MEDS: MULTIVITAMINS WITH MINERALS, THERAPEUTIC TABLET PO SCH (08:44)
[2019-11-13 10:40] VITALS: BP 103/72
[2019-11-13] MEDS: MAG HYDROX/AL HYDROX/SIMETH ES 30 ML SUSPENSION UDCUP PO PRN (11:10)
[2019-11-13 16:21] VITALS: BP 114/75
[2019-11-13] MEDS: MIRTAZAPINE 15 MG TABLET PO SCH (20:29)
[2019-11-14 05:29] VITALS: BP 123/88
[2019-11-14] MEDS: OMEPRAZOLE 20 MG CAPSULE PO SCH (08:37)
[2019-11-14] MEDS: THIAMINE 100 MG TABLET PO SCH ×2 (08:37→16:37)
[2019-11-14] MEDS: FOLIC ACID 1 MG TABLET PO SCH (08:37)
[2019-11-14] MEDS: OLANZapine 5 MG TABLET PO SCH ×2 (08:37→16:37)
[2019-11-14] MEDS: MULTIVITAMINS WITH MINERALS, THERAPEUTIC TABLET PO SCH (08:37)
[2019-11-14 09:03] VITALS: BP 119/77
[2019-11-14] MEDS: LOPERAMIDE HCL 2 MG CAPSULE PO PRN ×2 (10:50→19:05)
[2019-11-14] MEDS: BuPROPion HCL XL 150 MG ER TABLET PO SCH (11:26)
[2019-11-14 16:22] VITALS: BP 100/64
[2019-11-14] MEDS: MIRTAZAPINE 15 MG TABLET PO SCH (20:31)
[2019-11-15 06:51] VITALS: BP 100/65
[2019-11-15] MEDS: OMEPRAZOLE 20 MG CAPSULE PO SCH (09:11)
[2019-11-15] MEDS: FOLIC ACID 1 MG TABLET PO SCH (09:11)
[2019-11-15] MEDS: BuPROPion HCL XL 150 MG ER TABLET PO SCH (09:11)
[2019-11-15] MEDS: MULTIVITAMINS WITH MINERALS, THERAPEUTIC TABLET PO SCH (09:12)
[2019-11-15] MEDS: THIAMINE 100 MG TABLET PO SCH (09:12)
[2019-11-15] MEDS: OLANZapine 5 MG TABLET PO SCH (09:14)
[2019-11-15 10:00] VITALS: BP 110/60
[2019-11-15] MEDS ORDERED: BUPR-93 PO (14:45)
[2019-11-15] MEDS ORDERED: OLAN5TAB2 PO (14:45)
== END 2019-11-15 16:53 | disposition home or self-care (01) | DRG 885 ==
LOC: EMS 13:37 → B2X 18:23
PROVIDERS: ADMIT Psychiatry & Neurology Psychiatry; ATTEND Psychiatry & Neurology Psychiatry
DX: F25.1 Schizoaffective disorder, depressive type (principal); B18.2 Chronic viral hepatitis C; K50.90 Crohn's disease, unspecified, without complications; R45.851 Suicidal ideations; K21.9 Gastro-esophageal reflux disease without esophagitis; F17.200 Nicotine dependence, unspecified, uncomplicated; F10.10 Alcohol abuse, uncomplicated; F19.10 Other psychoactive substance abuse, uncomplicated; G40.909 Epilepsy, unspecified, not intractable, without status epilepticus; Z66 Do not resuscitate; Z79.899 Other long term (current) drug therapy; Z91.5 Personal history of self-harm; Z88.2 Allergy status to sulfonamides
CPT/HCPCS: 73503; 90732; G0480; J3420; Q0162

== ENCOUNTER 2019-11-12 11:47 | Emergency (ER) | payer MEDICARE, OTHER ==
[~2019-11-12] VITALS: Ht 170.2 cm; Wt 80.9 kg
[~2019-11-12 11:47] MED LIST changes: +DULO30CA2 PO; +GABA-1181 PO; +HYDR-4031 PO; +MIRT-89 PO; -MULT-723 PO; +OLAN5TAB2 PO; +PRAZ1 PO; +TRAZ150 PO
[2019-11-12 15:30] VITALS: BP 124/71
== END 2019-11-12 16:05 | disposition home or self-care (01) ==
LOC: EMS 11:49
DX: S70.02XA Contusion of left hip, initial encounter (principal); F17.210 Nicotine dependence, cigarettes, uncomplicated; F12.90 Cannabis use, unspecified, uncomplicated; F15.90 Other stimulant use, unspecified, uncomplicated; F20.9 Schizophrenia, unspecified; W01.0XXA Fall on same level from slipping, tripping and stumbling without subsequent striking against object, initial encounter; Y93.89 Activity, other specified; Y92.89 Other specified places as the place of occurrence of the external cause; Y99.8 Other external cause status
CPT/HCPCS: 73503